=== PATIENT | male | born 1945 | race Caucasian/White ===

== ENCOUNTER 2016-06-29 11:24 | Inpatient (IN) | payer MEDICARE, OTHER ==
[~2016-06-29] VITALS: Ht 165.1 cm; Wt 53.1 kg
[2016-06-29] VITALS (12 sets, daily range): BP systolic 83–118; BP diastolic 61–78
[2016-06-29] MEDS ORDERED: ASPIRIN 325 MG TABLET ONE (12:01)
[2016-06-29] MEDS ORDERED: HEPARIN for IV BOLUS 10,000 UNIT/10 ML VIAL. ONE ×2 (12:01→12:29)
--- NOTE | 2016-06-29 12:14 | PHYS DOC ---
Past Medical History Past Medical History: No Pertinent History Past Surgical History: Other Additional Past Surgical Histo: RUPTURED HERNIA Alcohol Use: None Drug Use: None Adult General Chief Complaint Chief Complaint: CHEST PAIN HPI HPI Patient is a 70 year old male brought to the ED by his niece and a neighbor with the complaint of epigastric pain which started at 8 PM last night. Patient says he laid awake all night last night with epigastric pain and a cold sweat. It did wax and wane somewhat but did not go away. It persisted this morning. Patient's niece tells me that he usually comes over to her house every day and when he didn't show up she went to check on him and made him come to the ED. States he has had this pain with a cold sweat twice in the last week or 2 but before then has never had it. Denies history of a heart attack. He quit smoking 8 years ago. He does not see a doctor regularly and has no known medical problems. He is not being treated for any medical conditions. He does believe he had a heart catheter in the 1970s. He had a left inguinal hernia repair in 2004. Review of Systems Review of Systems Constitutional: He had cold sweats all night Eyes: Denies change in visual acuity, redness, or eye pain [] HENT: Denies nasal congestion or sore throat [] Respiratory: Denies cough or shortness of breath [] Cardiovascular: As in history of present illness GI: As in history of present illness. His pain is epigastric in location, he does not have chest pain : Denies dysuria or hematuria [] Musculoskeletal: Denies back pain or joint pain [] Integument: Denies rash or skin lesions [] Neurologic: Denies headache, focal weakness or sensory changes [] Current Medications Current Medications Current Medications Medications (Trade) Dose Ordered Sig/Jamie Start Time Stop Time Status Last Admin Dose Admin Aspirin (Alexys Aspirin) 325 mg STK-MED ONCE 06/29/16 12:01 06/29/16 12:02 DC Heparin Sodium (Porcine) 10,000 unit STK-MED ONCE 06/29/16 12:01 06/29/16 12:02 DC Allergies Allergies Allergies Coded Allergies Type Severity Reaction Last Updated Verified No Known Drug Allergies 06/29/16 No Physical Exam Physical Exam Constitutional: Well developed, well nourished, no acute distress, non-toxic appearance. No dyspnea or diaphoresis on arrival. Alert, mentating normally. HENT: Normocephalic, atraumatic, bilateral external ears normal, oropharynx moist, nose normal. [] Eyes: conjunctiva normal, no discharge. [] Neck: Normal range of motion, no stridor. [] Cardiovascular:Heart rate regular rhythm, no murmur [] Lungs & Thorax: Bilateral breath sounds clear to auscultation [] Abdomen: Bowel sounds normal, soft, no tenderness, no masses, no pulsatile masses. [] Skin: Warm, dry, no erythema, no rash. [] Extremities: No tenderness, no cyanosis, no clubbing, ROM intact, no edema. [] Neurologic: Alert and oriented X 3, normal motor function, normal sensory function, no focal deficits noted. [] Current Patient Data Vital Signs Vital Signs Date Time Temp Pulse Resp B/P Pulse Ox O2 Delivery O2 Flow Rate FiO2 06/29/16 11:59 106 18 167/93 98 Room Air 06/29/16 11:37 98.1 98.1 Lab Values Laboratory Tests Test 06/29/16 12:05 06/29/16 12:08 06/29/16 12:10 White Blood Count 11.2x10^3/uL (4.0-11.0) H Red Blood Count 4.59x10^6/uL (4.30-5.70) Hemoglobin 13.7g/dL (13.0-17.5) Hematocrit 42.1% (39.0-53.0) Mean Corpuscular Volume 92fL (79-100) Mean Corpuscular Hemoglobin 30pg (25-35) Mean Corpuscular Hemoglobin Concent 33g/dL (31-37) Red Cell Distribution Width 13.6% (11.5-14.5) Platelet Count 238x10^3/uL (140-400) Neutrophils (%) (Auto) 88% (31-73) H Lymphocytes (%) (Auto) 6% (24-48) L Monocytes (%) (Auto) 7% (0-9) Eosinophils (%) (Auto) 0% (0-3) Basophils (%) (Auto) 0% (0-3) Neutrophils # (Auto) 9.8x10^3uL (1.8-7.7) H Lymphocytes # (Auto) 0.6x10^3/uL (1.0-4.8) L Monocytes # (Auto) 0.7x10^3/uL (0.0-1.1) Eosinophils # (Auto) 0.0x10^3/uL (0.0-0.7) Basophils # (Auto) 0.0x10^3/uL (0.0-0.2) Platelet Estimate Pending Prothrombin Time 11.2SEC (11.7-14.0) L Prothrombin Time INR 0.9 (0.8-1.1) Sodium Level 144mmol/L (136-145) Potassium Level 4.7mmol/L (3.5-5.1) Chloride Level 104mmol/L (98-107) Carbon Dioxide Level 24mmol/L (21-32) Anion Gap 16 (6-14) H 18mmol/L (6-14) H Blood Urea Nitrogen 15mg/dL (8-26) Creatinine 1.0mg/dL (0.7-1.3) Estimated GFR (Cockcroft-Gault) 74.3 Glucose Level 191mg/dL (70-99) H 190mg/dL (70-99) H Calcium Level 10.3mg/dL (8.5-10.1) H Magnesium Level 2.1mg/dL (1.8-2.4) Total Bilirubin 0.5mg/dL (0.2-1.0) Direct Bilirubin 0.1mg/dL (0.0-0.2) Aspartate Amino Transferase (AST) 473U/L (15-37) H Alanine Aminotransferase (ALT) 79U/L (16-63) H Alkaline Phosphatase 84U/L (46-116) Total Protein 8.3g/dL (6.4-8.2) H Albumin 4.4g/dL (3.4-5.0) POC Troponin I 41.31ng/ml (<0.08) POC Hemoglobin 14.3g/dL (14-18) POC Hematocrit 42% (37-52) POC Sodium 140mmol/L (135-145) POC Potassium 4.2mmol/L (3.5-5.0) POC Chloride 104mmol/L (98-110) POC Total CO2 23mmol/L (23-32) POC Blood Urea Nitrogen 13mg/dL (8-26) POC Creatinine 0.8mg/dL (0.5-1.4) POC Ionized Calcium (Cheikh) 1.11mmol/L (1.13-1.32) L Laboratory Tests 06/29/16 12:05 Laboratory Tests 06/29/16 12:05 06/29/16 12:10 EKG EKG 12-lead EKG read by me. Sinus rhythm. Heart rate 96. ST elevation is present in 2, 3, and aVF, with reciprocal depression in 1, aVL, and V2. The EKG is consistent with an acute STEMI. 1147[] Radiology/Procedures Radiology/Procedures One view portable chest x-ray read by me. Heart size normal. Lung padilla are clear. No acute cardiopulmonary abnormality. [] Course & Med Decision Making Course & Med Decision Making Pertinent Labs and Imaging studies reviewed. (See chart for details) 70-year-old male presented to the ED by POV complaining of epigastric pain since 8:00 last night, persistent now for about 16 hours. He was placed in a room and 12-lead EKG showed STEMI. He was moved to a cardiac room and code STEMI was initiated. I spoke with Dr. Campbell who is on-call for STEMI team. Patient was given aspirin and IV heparin. Patient and family were counseled on the diagnosis of STEMI and the treatment plan for cardiology and likely catheter lab. Questions were answered. Patient remained stable in the emergency department. Dr. Campbell, cardiology, came to the ED to see the patient and examine him and discussed with the patient and family the plan for catheter lab. I spoke with Dr. Eugene, hospital medicine, who will admit the patient. I wrote bridge orders. The patient went from the ED to the County Historian. Critical care time 40 minutes including evaluation of acute STEMI, reading EKG, bedside consultation, consultation with complaint investigator and admitting hospitalist, writing orders, documentation, bridge orders. [] Dragon Disclaimer Dragon Disclaimer This electronic medical record was generated, in whole or in part, using a voice recognition dictation system. Departure Departure Impression: Primary Impression: STEMI (ST elevation myocardial infarction) Disposition: 09 ADMITTED INPATIENT Admitting Physician: Other Condition: STABLE Referrals: UNKNOWN PCP NAME (PCP) BHAKTI BEAR MD Jun 29, 2016 12:14
[2016-06-29] MEDS ORDERED: ONDANSETRON PF 4 MG/2 ML VIAL. ONE (12:17)
[2016-06-29] MEDS ORDERED: MORPHINE SULFATE 2 MG/ML DISP.SYRIN. ONE (12:18)
[2016-06-29] MEDS ORDERED: IODIXANOL 320 MG/ML 100 ML VIAL. ONE ×2 (12:24)
[2016-06-29] MEDS ORDERED: LIDOCAINE 2% 20 ML VIAL. ONE (12:24)
[2016-06-29] MEDS ORDERED: FENTANYL PF 100 MCG/2 ML VIAL. ONE (12:29)
[2016-06-29] MEDS ORDERED: VERAPAMIL 5 MG/2 ML VIAL. ONE (12:29)
[2016-06-29] MEDS ORDERED: NITROGLYCERIN 200 MCG/2 ML SYRINGE FOR CATH/VASC LAB. ONE (12:29)
[2016-06-29] MEDS ORDERED: MORPHINE SULFATE 2 MG/ML DISP.SYRIN. IV/SQ PRN (12:30)
[2016-06-29] MEDS ORDERED: HEPARIN for IV BOLUS 10,000 UNIT/10 ML VIAL. IV ONE ×2 (12:30→13:19)
[2016-06-29] MEDS ORDERED: ASPIRIN 81 MG TAB.CHEW PO ONE (12:30)
[2016-06-29] MEDS ORDERED: MIDAZOLAM HCL 2 MG/2 ML VIAL. ONE (12:30)
[2016-06-29] MEDS ORDERED: ONDANSETRON PF 4 MG/2 ML VIAL. IV ONE (12:30)
--- NOTE | 2016-06-29 12:38 | RAD ---
Indication: Myocardial infarction. Technique: Upright portable chest radiograph was obtained. Comparison is from November 22, 2004. Findings: The lungs are clear. The heart is not enlarged. There is no heart failure. Bony structures are intact. Leads overlie the patient. Impression: No acute thoracic findings.
[2016-06-29 12:41] LABS: BASO % 0 % (0-3); EOS % 0 % (0-3); HEMATOCRIT 42.1 % (39.0-53.0); HEMOGLOBIN 13.7 g/dL (13.0-17.5); LYMPH # 0.6 x10^3/uL (1.0-4.8); LYMPH % 6 % (24-48); MEAN CORPUSCULAR HEMOGLOBIN 30 pg (25-35); MEAN CORPUSCULAR HGB CONC 33 g/dL (31-37); MEAN CORPUSCULAR VOLUME 92 fL (79-100); MONO % 7 % (0-9); NEUT % 88 % (31-73); PLATELET COUNT 238 x10^3/uL (140-400); RED BLOOD COUNT 4.59 x10^6/uL (4.30-5.70); RED CELL DISTRIBUTION WIDTH 13.6 % (11.5-14.5); WHITE BLOOD COUNT 11.2 x10^3/uL (4.0-11.0)
--- NOTE | 2016-06-29 12:41 | EKG ---
[facility] [address] [place] [address] Test Date: 2016-06-29 Test Time: 11:47:52 Pat Name: LLOYD CORBETT Department: Room: 104 1 Gender: Male Teaching Pastor: : 1945 Requested By: BHAKTI BEAR Order Number: [id number] Reading MD: Jaden Luke Measurements Intervals [place] Rate: 96 P: 59 [place]: 170 QRS: -6 QRSD: 84 T: 100 QT: 320 QTc: 410 Interpretive Statements SINUS RHYTHM LEFT ATRIAL ABNORMALITY LEFTWARD AXIS INCOMPLETE RIGHT BUNDLE BRANCH BLOCK QRS(T) CONTOUR ABNORMALITY CONSIDER ACUTE INFERIOR MYOCARDIAL INFARCTION Electronically Signed On 07-08-2016 16:19:55 CDT by Jaden Luke
[2016-06-29 12:45] LABS: CALCIUM 10.3 mg/dL (8.5-10.1); GFR 74.3; POTASSIUM 4.7 mmol/L (3.5-5.1)
[2016-06-29] MEDS ORDERED: FENTANYL PF 100 MCG/2 ML VIAL. IV ONE (12:45)
[2016-06-29] MEDS ORDERED: MIDAZOLAM HCL 2 MG/2 ML VIAL. IV ONE (12:45)
[2016-06-29] MEDS ORDERED: TIROFIBAN 12.5MG -0.9% NS 250 ML IV ONE (12:45)
[2016-06-29 12:47] LABS: POTASSIUM ISTAT 4.2 mmol/L (3.5-5.0)
[2016-06-29] MEDS ORDERED: TIROFIBAN IV ONE (12:48)
[2016-06-29] MEDS ORDERED: NS IV ONE (12:48)
[2016-06-29 12:51] LABS: ALBUMIN 4.4 g/dL (3.4-5.0); DIRECT BILIRUBIN 0.1 mg/dL (0.0-0.2); MAGNESIUM 2.1 mg/dL (1.8-2.4); TOTAL BILIRUBIN 0.5 mg/dL (0.2-1.0); TOTAL PROTEIN 8.3 g/dL (6.4-8.2)
--- NOTE | 2016-06-29 12:51 | CONS ---
DATE OF CONSULTATION: 06/29/2016 HISTORY OF PRESENT ILLNESS: The patient is a pleasant 70-year-old gentleman, no past medical history, coming into the ER with epigastric pain times 24 hours. He reports that he had some similar discomfort approximately 2 weeks ago. At baseline, he does not have any significant dyspnea. Upon evaluation in the ER, he was noted to have inferior ST elevation myocardial infarction appropriately STEMI team was activated. He was given aspirin 325 and 4000 units of heparin and taken emergently to the oven laborer. PAST MEDICAL HISTORY: No significant past medical history. PAST SURGICAL HISTORY: Hernia repair. ALLERGIES: No known drug allergies. SOCIAL HISTORY: Lives by himself, appears to be estranged from family. Remote tobacco history. No alcohol or illicit drug use. MEDICATIONS: No current cardiovascular medications. PHYSICAL EXAMINATION: VITAL SIGNS: Afebrile, heart rate 100, pulse ox 99% on room air. Blood pressure 127/82. GENERAL: He is alert and oriented, no acute distress. HEAD AND NECK: Unremarkable. CARDIAC: Regular rate and rhythm without any murmurs, rubs or gallops. LUNGS: Clear. ABDOMEN: Soft. EXTREMITIES: Radial pulses are 2+. NEUROLOGIC: No focal deficits. PSYCHIATRIC: Mood normal. DIAGNOSTIC STUDIES: Cr 1.0 Trop 92. EKG with inferior STEMI, likely late presentation given q-waves. Cardiac cath demonstrated: No significant disease in the LAD, LM. Congenitally absent Lcx. Proximal RCA occlusion, s/p stenting with implantation of Xience 3.0/23 PAUL. LVEF 45% with inferior wall HK. IMPRESSION: 1. Inferior STEMI. 2. Transient bradycardia due to inferior STEMI. RECOMMENDATIONS: 1. ASA 81mg daily 2. Ticagrelor 90mg bid 3. Atorvastatin 40mg qhs. 4. Continue Tirofiban infusion x 18 hours. 5. Cardiac rehab referral. 6. Admit to ICU and monitor. DO EDWARDS MD DR: ALEXIS/jet JOB#: [id number] / [id number] WILFRED
[2016-06-29 12:56] LABS: INR 0.9 (0.8-1.1); PROTHROMBIN TIME PATIENT 11.2 SEC (11.7-14.0)
[2016-06-29] MEDS ORDERED: TIROFIBAN 12.5MG -0.9% NS 250 ML IV PRN ×2 (13:00→14:00)
[2016-06-29] MEDS ORDERED: VERAPAMIL 5 MG/2 ML VIAL. IART ONE (13:00)
[2016-06-29] MEDS ORDERED: NITROGLYCERIN 200 MCG/2 ML SYRINGE FOR CATH/VASC LAB. IART ONE (13:00)
[2016-06-29] MEDS ORDERED: LIDOCAINE 2% 20 ML VIAL. IJ ONE (13:00)
[2016-06-29] MEDS ORDERED: HEPARIN for IV BOLUS 10,000 UNIT/10 ML VIAL. IART ONE (13:00)
[2016-06-29] MEDS ORDERED: IODIXANOL 320 MG/ML 100 ML VIAL. IART ONE (13:00)
[2016-06-29] MEDS ORDERED: PHENYLEPHRINE in 0.9% NACL PF 1 MG/10 ML DISP.SYRIN. IV ONE ×2 (13:12→13:15)
[2016-06-29] MEDS ORDERED: CONTRAST GIVEN MC PRN (13:15)
[2016-06-29] MEDS ORDERED: DOPAMINE 400MG/250ML PREMIX 250 ML IV ONE (13:16)
[2016-06-29] MEDS ORDERED: ATROPINE 0.5 MG/5 ML DISP.SYRIN. IV ONE (13:17)
[2016-06-29] MEDS ORDERED: CANGRELOR TETRASODIUM 50 MG VIAL. IV ONE (13:36)
[2016-06-29 13:40] LABS: CKMB INDEX 12.4 % (0-4); CKMB MASS 557.5 ng/mL (0.0-3.6)
[2016-06-29] MEDS ORDERED: CANGRELOR TETRASODIUM 50 MG in IV NORMAL SALINE 250ML 250 ML IV PRN (13:45)
[2016-06-29] MEDS ORDERED: OXYCODONE/APAP 5/325 TABLET. PO PRN (14:00)
[2016-06-29] MEDS ORDERED: ATROPINE 0.5 MG/5 ML DISP.SYRIN. IV PRN (14:00)
[2016-06-29] MEDS ORDERED: NITROGLYCERIN SUBLINGUAL 0.4 MG BOTTLE OF 25. SL PRN (14:00)
[2016-06-29] MEDS ORDERED: LIDOCAINE 2% 100 MG/5 ML DISP.SYRIN. IV PRN (14:00)
[2016-06-29] MEDS ORDERED: ONDANSETRON PF 4 MG/2 ML VIAL. IV PRN (14:00)
[2016-06-29] MEDS ORDERED: CYCLOBENZAPRINE 10 MG TABLET. PO PRN (14:00)
[2016-06-29] MEDS ORDERED: 0.9 % SODIUM CHLORIDE 10 ML DISP.SYRIN. IV PRN (14:00)
[2016-06-29] MEDS ORDERED: ACETAMINOPHEN 325 MG TABLET. PO PRN (14:00)
[2016-06-29] MEDS ORDERED: AMIODARONE 150 MG in IV DEXTROSE 5% 100 ML IV PRN (14:00)
[2016-06-29 14:22] LABS: PLT ESTIMATE ADEQUATE (ADEQUATE); TOXIC GRANULATION MOD
--- NOTE | 2016-06-29 14:45 | ACF ---
Admission Forms Criteria MYOCARDIAL INFARCTION Clinical Indications for Admission to Inpatient Care (Place 'X' for any and all applicable criteria): Admission is indicated for ANY ONE of the following (1)(2)(3)(4): [X]I. Acute VT [ ]II. Contraindications and/or Inappropriate clinical situations for Observational Care in patients with Myocardial Infarction, when ANY ONE of the following is required: [ ]a) Patient with High risk of cardiac embolism (e.g, patients with previous cardiac embolism, LVEF < 40%, age >75 and patients with prosthetic valve) 18 [ ]b) Patient with Moderate risk including DM patient, CAD and patient aged 65-75 18 [ ]c) Patient with any change in cardiac biomarker especially troponin should be managed as high risk in an inpatient setting 19 [ ]d) Physician judgement irrespective of ECG and other diagnostic findings 20 [ ]III.General contraindications and/or Inappropriate clinical situations for Observational Care in patients with Myocardial Infarction, when ANY ONE of the following is required: [ ]a) Prediction of prolongation of LOS based on ANY ONE of the following may be considered as a contraindication for observational care 2, 3, 4, 5, 6, 7, 8, 9, 10, 11 [ ]i) Age > 65 yrs. [ ]ii) Patient arriving by ambulance [ ]iii) Patient with high acuity [ ]iv) Patient requiring vital sign monitoring [ ]v) Patient on IV medication [ ]b) Systolic blood pressures 180mmHg 3,12 [ ]c) Patient with altered mental status including delirium and other alteration of consciousness, (3) [ ]d) Patient whose discharge disposition will be to a residential home or rehabilitation home should not be managed in Emergency Department Observation Unit. CMS rule requires 3 days hospital stay before such placement. 3,13 [ ]e) Patient with failure to thrive due to broad array of etiologies 3 ,16,17 [ ]f) Inability to ambulate 3,14 Extended stay beyond goal length of stay may be needed for (1)(18)(20)(24)(25): [ ]a) Hemodynamic instability, persisting symptoms after intensive medical management, or recurring severe, prolonged symptoms [ ]b) Intravascular procedural complications such as acute vessel closure, stent thrombosis, stent malposition, or vessel dissection (26)(27)(28) [ ]c) Extravascular procedural complications such as retroperitoneal hematoma , pericardial effusion, or cardiac tamponade [ ]d) Entry site complications causing bleeding, hematoma or distal ischemia and requiring ongoing monitoring, surgical repair or surgical thrombectomy(29) [ ]e) Dangerous arrhythmia [ ]f) Complicated percutaneous coronary intervention (e.g., unsuccessful percutaneous coronary intervention or percutaneous coronary intervention of non- [place] vessel) [ ]g) Urgent or emergent surgery for complications of VT (e.g., ventricular rupture, valvular insufficiency) [ ]h) Surgical revascularization via coronary artery bypass graft [ ]i) Heart failure (e.g., pulmonary edema) [ ]j) Unstable pulmonary comorbidities, including COPD or pneumonia (31) [ ]k) Acute renal failure The original [employer] content created by [employer] has been revised. The portions of the content which have been revised are identified through the use of italic text or in bold, and [facility] [employer] has neither reviewed nor approved the modified material. All other unmodified content is copyright [facility] [employer] Please see references footnoted in the original [employer] [facility] [employer] [employer] edition 2016 Admission Criteria Met?: Yes SUSAN FLORES Jun 29, 2016 14:45
[2016-06-29] MEDS: MORPHINE SULFATE 4 MG/ML DISP.SYRIN. IV PRN ×3 (14:56→22:06)
--- NOTE | 2016-06-29 15:51 | EKG ---
[facility] [address] [place] [address] Test Date: 2016-06-29 Test Time: 15:48:46 Pat Name: LLOYD CORBETT Department: Room: 104 1 Gender: M Clinical Research Administrator: : 1945 Requested By: DO EDWARDS Order Number: [id number] Reading MD: Jaden Luke Measurements Intervals [place] Rate: 74 P: 71 AR: 168 QRS: -34 QRSD: 86 T: -34 QT: 382 QTc: 424 Interpretive Statements SINUS RHYTHM ABNORMAL LEFT AXIS DEVIATION INCOMPLETE RIGHT BUNDLE BRANCH BLOCK QRS(T) CONTOUR ABNORMALITY CONSISTENT WITH INFERIOR INFARCT POSSIBLY RECENT ABNORMAL ECG RI6.01 No previous ECG available for comparison Electronically Signed On 07-08-2016 16:21:06 CDT by Jaden Luke
[2016-06-29] MEDS ORDERED: TICAGRELOR 90 MG TABLET. PO STA (16:30)
--- NOTE | 2016-06-29 17:03 | CARD ---
APPROVED REPORT Procedure(s) performed: PTCA with Stenting RCA PTCA of the RPDA Left Heart Catheterization Left ventriculography HISTORY : The patient is a 70 year-old male with a history of . INDICATION The indication(s) include : STEMI (>6 hrs to = 12 hrs). PROCEDURE NARRATIVE After explaining the risks and benefits of the procedure and alternatives, informed verbal consent wa s obtained. The patient was brought emergently to the cardiac catheterization lab. A timeout was per formed confirming the patient's name, date of , procedure, and site of procedure. All necessary personnel were wearing the appropriate protective equipment and radiation monitor devices. (See nu rsing notes for medications administered). The right wrist was sterilely prepped and draped in the u sual fashion. The right wrist was infiltrated with 1 mL of 2% lidocaine for subcutaneous anesthesia. A 6 Hebrew Terumo glide sheath was inserted into the right radial artery without difficulty. Right and left coronary angiography was performed using a 6Fr Ikari 1.5 R guide catheter. HEMODYNAMICS: LVEDP 28 mm Hg No gradient on LV to aortic pullback. LEFT VENTRICULOGRAM: EF 40% Anterobasal: Normal. Anterolateral: Normal Apical: Normal Diaphragmatic: Akinetic Posterobasal: Akinetic CORONARY ANGIOGRAPHY: LM is a large caliber vessel with normal angiographic appearance. LAD is a large caliber vessel with normal angiographic appearance. D1 is a moderate caliber vessel with normal angiographic apeparance. LCx is congenitally absent. The lateral wall is supplied by a hyperdominant RCA. RCA is a large caliber dominant vessel with a proximal 100% occlusion. RPDA is a small caliber vessel with distal thrombus noted in the small vessel. RPL1 is a moderate caliber vessel with distal thrombus noted. RPL2 is a small caliber vessel with distal thrombus noted. INTERVENTIONAL TECHNIQUE: Heparin weight based bolus dosing was used to achieve and maintain an ACT > 200. In addition, a Tirof machelle infusion was started after bolus. Through the 6Fr Ikari 1.5 guide catheter, a 0.014'' Terumo run through wire was able to cross the proximal RCA lesion. Balloon angioplasty was performed with a Iban k 2.5/12 balloon. Post-angioplasty, angiography showed distal small vessel no reflow and thrombus bur den in the proximal RCA. Next, a Prowater wire was advanced to the distal RPDA to help with small wir e reperfusion and dotter the vessel. Next, repeat angioplasty was performed of the proximal RCA with a 3.0/12 balloon and the lesion wa stented after the PDA wire was removed with a Xience 3.0/23 PAUL at 14 marium. Several rounds of NTG and verapamil were given. The patient had transient bradycardia and ju nctional rhythm during the case as expected given his RCA occlusion. IVF were given. Repeat angiograp hy demonstrated mid RPDA occlusion a less than 2.0 mm caliber sized vessel. Therefore, a low pressure balloon inflation with a Trek 2.0/8 mm balloon was performed after a Prowater wire was placed back i n the RPDA. Despite, several vasodilator agents, the patient had persistent distal microvascular no-r eflow. At this time, given STEVEN 3 flow in the major branches, further intervention was deferred. Lef t ventricular end diastolic pressure was obtained with a pigtail catheter and pullback was performed after left ventriculography in a GARRISON/SERBIAN projection. All catheter exchanges and advancements were pe rformed over a guidewire. At case completion the right radial sheath was removed and a Terumo radial band was applied with 15 ml of air. The patient tolerated the procedure well and there were no imme diate complications. The patient was started in Cangrelor therapy and transferred to ICU for close mo nitoring. Conclusion 1. Inferior STEMI 2. Successful implantation of a Xience 3.0/23 PAUL in the proximal RCA. 3. Congenitally absent LCx. Recommendations ASA 81mg daily Ticagrelor 90mg bid Atorvastatin 40mg daily Lipids in a.m. Cardiac rehab. Continue Tirofiban infusion x 18 hours. Echo in a.m.
[2016-06-29] MEDS ORDERED: DEXTROSE 50% 25 GM / 50ML DISP.SYRIN. IV PRN (18:15)
--- NOTE | 2016-06-29 20:04 | HP ---
ADMIT DATE: 06/29/2016 CHIEF COMPLAINT: Chest pain. HISTORY OF PRESENT ILLNESS: The patient is a 70-year-old gentleman, without any medical problems (or medical care), who was brought in by his niece with complaints of epigastric pain starting at 8:00 p.m. last night. He relates that he actually had been up all night with his having cold sweats. Pain however never completely went away, although waxed and waned during the night. On further questioning, he relates that he had similar pain in the past for quite a while, although he is unable to specify the time frame. In the Emergency Room, he was found with an NSTEMI and was immediately taken to the Inside Sales Director for a catheterization. Cath showed inferior NSTEMI with successful implantation of a stent in the proximal RCA. EF at that time was 40%. He was brought to the Intensive Care Unit for further recovery. PAST MEDICAL HISTORY: Possible cardiac cath in the past. Hernia repair in 2004. FAMILY HISTORY: Positive for heart disease in both parents. SOCIAL HISTORY: He lives by himself. Quit smoking 8 years ago after accumulating [id number] history. Quit drinking 17 years ago after apparently excessive alcohol abuse. ALLERGIES: No known drug allergies. HOME MEDICATIONS: None. REVIEW OF SYSTEMS: Still has some pain in his left chest just lateral to the sternum. Much much improved over pain from this morning. Denies any shortness of breath. Rest of organ system review is negative. PHYSICAL EXAMINATION: VITAL SIGNS: Currently show a blood pressure of 112/76, heart rate of 81, respiratory rate at 21. He is afebrile. GENERAL: This is a 70-year-old gentleman, malnourished, alert and oriented, in no acute distress. HEENT: Shows no scleral icterus. NECK: Supple. LUNGS: Clear to auscultation. HEART: Regular rate and rhythm. ABDOMEN: Has positive bowel sounds, soft, nontender. EXTREMITIES: Show no edema. SKIN: Warm, soft, and dry without any rash. LABORATORY DATA: CBC with a WBC of 11.2, hemoglobin 13.7, platelets of 238, neutrophils at 88. Chemistries with a BUN and creatinine of 15 and 1.0. Electrolytes within normal limits. Glucose at 191. AST and ALT of 473 and 79. CK at 4505. Initial troponin at 92.5. ProBNP 1466. RADIOGRAPHIC FINDINGS: Chest x-ray with no acute thoracic findings. ASSESSMENT AND PLAN: The patient is a 70-year-old gentleman with [id number] myocardial infarction, now status post successful cath with stent placement. He is recuperating in the ICU. By his glucose measurements, he is more than likely diabetic as well. We will obtain hemoglobin A1c, start insulin sliding scale for now to get a an idea of insulin response. He probably will have to be on insulin for the next month and then can be switched to p.o. meds. We will risk stratify him with lipid profile as well. In the meantime, heparin protocol as per cath. Aspirin will be continued in the morning. JAK GOMEZ MD DR: ADE/nts JOB#: [id number] / [id number] WILFRED
[2016-06-29] MEDS: METOPROLOL TART IMMED RELEASE 25 MG TABLET PO SCH (20:50)
[2016-06-29] MEDS: ATORVASTATIN CALCIUM 40 MG TABLET. PO SCH (20:50)
[2016-06-29 22:40] LABS: CKMB INDEX 10.3 % (0-4); CKMB MASS 686.9 ng/mL (0.0-3.6)
[2016-06-30] VITALS (28 sets, daily range): BP systolic 65–130; BP diastolic 49–80
[2016-06-30] MEDS: MORPHINE SULFATE 4 MG/ML DISP.SYRIN. IV PRN ×2 (02:07→10:28)
[2016-06-30 07:25] LABS: ALBUMIN 3.5 g/dL (3.4-5.0); CREATININE 2.3 mg/dL (0.7-1.3); DIRECT BILIRUBIN 0.2 mg/dL (0.0-0.2); GFR 28.4; POTASSIUM 4.8 mmol/L (3.5-5.1); TOTAL BILIRUBIN 0.6 mg/dL (0.2-1.0); TOTAL PROTEIN 7.8 g/dL (6.4-8.2)
[2016-06-30 07:30] LABS: CHOLESTEROL/HDL RATIO 1.6
[2016-06-30 07:59] LABS: CKMB INDEX 6.7 % (0-4); CKMB MASS 328.7 ng/mL (0.0-3.6)
[2016-06-30] MEDS: INSULIN ASPART 300 UNITS/3 ML INSULN.PEN SQ SCH ×3 (08:00→17:00)
[2016-06-30] MEDS ORDERED: IV NORMAL SALINE 1000ML BAG 1,000 ML IV SCH (08:15)
--- NOTE | 2016-06-30 08:15 | PDOC ---
PROGRESS NOTES Chief Complaint Chief Complaint IMPRESSION: 1. Inferior STEMI. Proximal RCA occlusion, s/p stenting with implantation of Xience 3.0/23 PAUL. LVEF 45% with inferior wall HK. 2. Transient bradycardia due to inferior STEMI. 3. ANDIE, possible Contrast induced nephropathy\ 4. Urinary retention History of Present Illness History of Present Illness SOme epigastric pains VS stable Needed straight cath last night Again, bladder feels full now NO UO yet LAst bladder scan 400cc 2 hrs ago NOt the best historian, re sxs of BPH Crea jumped to 2.7 this AM PLAn: Bladder scan now, likely will need to insert valdez Check PSA Start IVF 100cc/hr CHeck UA - (for ATN, muddy brown granular casts etc) Recheck BMP hansa COnsult urology re urinary retention Cardiac recs include: RECOMMENDATIONS: 1. ASA 81mg daily 2. Ticagrelor 90mg bid 3. Atorvastatin 40mg qhs. 4. Continue Tirofiban infusion x 18 hours. 5. Cardiac rehab referral. 6. Admit to ICU and monitor. Vitals Vitals Vital Signs Date Time Temp Pulse Resp B/P Pulse Ox O2 Delivery O2 Flow Rate FiO2 06/30/16 07:00 75 20 111/68 95 Nasal Cannula 2.0 06/30/16 04:00 98.1 98.1 Physical Exam General: Alert, Oriented X3, Cooperative, No acute distress Heart: Regular rate, Normal S1, Normal S2, No murmurs Lungs: Clear Abdomen: Normal bowel sounds Extremities: No clubbing, No cyanosis, No edema Skin: No rashes, No breakdown, No significant lesion Labs LABS Laboratory Tests Test 06/29/16 12:05 06/29/16 12:08 06/29/16 12:10 06/29/16 22:00 White Blood Count 11.2x10^3/uL (4.0-11.0) Red Blood Count 4.59x10^6/uL (4.30-5.70) Hemoglobin 13.7g/dL (13.0-17.5) Hematocrit 42.1% (39.0-53.0) Mean Corpuscular Volume 92fL (79-100) Mean Corpuscular Hemoglobin 30pg (25-35) Mean Corpuscular Hemoglobin Concent 33g/dL (31-37) Red Cell Distribution Width 13.6% (11.5-14.5) Platelet Count 238x10^3/uL (140-400) Neutrophils (%) (Auto) 88% (31-73) Lymphocytes (%) (Auto) 6% (24-48) Monocytes (%) (Auto) 7% (0-9) Eosinophils (%) (Auto) 0% (0-3) Basophils (%) (Auto) 0% (0-3) Neutrophils # (Auto) 9.8x10^3uL (1.8-7.7) Lymphocytes # (Auto) 0.6x10^3/uL (1.0-4.8) Monocytes # (Auto) 0.7x10^3/uL (0.0-1.1) Eosinophils # (Auto) 0.0x10^3/uL (0.0-0.7) Basophils # (Auto) 0.0x10^3/uL (0.0-0.2) Segmented Neutrophils % 78% (35-66) Band Neutrophils % 14% (0-9) Lymphocytes % 4% (24-48) Monocytes % 4% (0-10) Toxic Granulation Mod Platelet Estimate Adequate (ADEQUATE) Prothrombin Time 11.2SEC (11.7-14.0) Prothromb Time International Ratio 0.9 (0.8-1.1) Sodium Level 144mmol/L (136-145) Potassium Level 4.7mmol/L (3.5-5.1) Chloride Level 104mmol/L (98-107) Carbon Dioxide Level 24mmol/L (21-32) Anion Gap 16 (6-14) 18mmol/L (6-14) Blood Urea Nitrogen 15mg/dL (8-26) Creatinine 1.0mg/dL (0.7-1.3) Estimated GFR (Cockcroft-Gault) 74.3 Glucose Level 191mg/dL (70-99) 190mg/dL (70-99) Calcium Level 10.3mg/dL (8.5-10.1) Magnesium Level 2.1mg/dL (1.8-2.4) Total Bilirubin 0.5mg/dL (0.2-1.0) Direct Bilirubin 0.1mg/dL (0.0-0.2) Aspartate Amino Transf (AST/SGOT) 473U/L (15-37) Alanine Aminotransferase (ALT/SGPT) 79U/L (16-63) Alkaline Phosphatase 84U/L (46-116) Creatine Kinase 4505U/L (39-308) 6680U/L (39-308) Creatine Kinase MB (Mass) 557.5ng/mL (0.0-3.6) 686.9ng/mL (0.0-3.6) Creatine Kinase MB Relative Index 12.4% (0-4) 10.3% (0-4) Troponin I Quantitative 92.517ng/mL (0.000-0.055) YM-Odq-Z-Type Natriuretic Peptide 1466pg/mL (0-124) Total Protein 8.3g/dL (6.4-8.2) Albumin 4.4g/dL (3.4-5.0) Bedside Troponin I 41.31ng/ml (<0.08) Bedside Hemoglobin 14.3g/dL (14-18) Bedside Hematocrit 42% (37-52) Bedside Sodium 140mmol/L (135-145) Bedside Potassium 4.2mmol/L (3.5-5.0) Bedside Chloride 104mmol/L (98-110) Bedside Total CO2 23mmol/L (23-32) Bedside Blood Urea Nitrogen 13mg/dL (8-26) Bedside Creatinine 0.8mg/dL (0.5-1.4) Bedside Ionized Calcium (Cheikh) 1.11mmol/L (1.13-1.32) Test 06/30/16 06:50 Sodium Level 136mmol/L (136-145) Potassium Level 4.8mmol/L (3.5-5.1) Chloride Level 99mmol/L (98-107) Carbon Dioxide Level 22mmol/L (21-32) Anion Gap 15 (6-14) Blood Urea Nitrogen 32mg/dL (8-26) Creatinine 2.3mg/dL (0.7-1.3) Estimated GFR (Cockcroft-Gault) 28.4 Glucose Level 156mg/dL (70-99) Calcium Level 9.0mg/dL (8.5-10.1) Total Bilirubin 0.6mg/dL (0.2-1.0) Direct Bilirubin 0.2mg/dL (0.0-0.2) Aspartate Amino Transf (AST/SGOT) 650U/L (15-37) Alanine Aminotransferase (ALT/SGPT) 124U/L (16-63) Alkaline Phosphatase 63U/L (46-116) Creatine Kinase 4896U/L (39-308) Creatine Kinase MB (Mass) 328.7ng/mL (0.0-3.6) Creatine Kinase MB Relative Index 6.7% (0-4) Total Protein 7.8g/dL (6.4-8.2) Albumin 3.5g/dL (3.4-5.0) Triglycerides Level 66mg/dL (0-150) Cholesterol Level 177mg/dL (0-200) LDL Cholesterol, Calculated 56mg/dL (0-100) VLDL Cholesterol, Calculated 13mg/dL (0-40) HDL Cholesterol 108mg/dL (40-60) Cholesterol/HDL Ratio 1.6 Review of Systems Review of Systems full blaDDER, SOME EPIGATSRIC PAINS, ALL ELSE IS NEG Assessment and Plan Assessmemt and Plan Problems Medical Problems: (1) STEMI (ST elevation myocardial infarction) Status: Acute Problems: Comment Review of Relevant I have reviewed the following items bryant (where applicable) has been applied. Labs Laboratory Tests Test 06/29/16 12:05 06/29/16 12:08 06/29/16 12:10 06/29/16 22:00 White Blood Count 11.2x10^3/uL (4.0-11.0) Red Blood Count 4.59x10^6/uL (4.30-5.70) Hemoglobin 13.7g/dL (13.0-17.5) Hematocrit 42.1% (39.0-53.0) Mean Corpuscular Volume 92fL (79-100) Mean Corpuscular Hemoglobin 30pg (25-35) Mean Corpuscular Hemoglobin Concent 33g/dL (31-37) Red Cell Distribution Width 13.6% (11.5-14.5) Platelet Count 238x10^3/uL (140-400) Neutrophils (%) (Auto) 88% (31-73) Lymphocytes (%) (Auto) 6% (24-48) Monocytes (%) (Auto) 7% (0-9) Eosinophils (%) (Auto) 0% (0-3) Basophils (%) (Auto) 0% (0-3) Neutrophils # (Auto) 9.8x10^3uL (1.8-7.7) Lymphocytes # (Auto) 0.6x10^3/uL (1.0-4.8) Monocytes # (Auto) 0.7x10^3/uL (0.0-1.1) Eosinophils # (Auto) 0.0x10^3/uL (0.0-0.7) Basophils # (Auto) 0.0x10^3/uL (0.0-0.2) Segmented Neutrophils % 78% (35-66) Band Neutrophils % 14% (0-9) Lymphocytes % 4% (24-48) Monocytes % 4% (0-10) Toxic Granulation Mod Platelet Estimate Adequate (ADEQUATE) Prothrombin Time 11.2SEC (11.7-14.0) Prothromb Time International Ratio 0.9 (0.8-1.1) Sodium Level 144mmol/L (136-145) Potassium Level 4.7mmol/L (3.5-5.1) Chloride Level 104mmol/L (98-107) Carbon Dioxide Level 24mmol/L (21-32) Anion Gap 16 (6-14) 18mmol/L (6-14) Blood Urea Nitrogen 15mg/dL (8-26) Creatinine 1.0mg/dL (0.7-1.3) Estimated GFR (Cockcroft-Gault) 74.3 Glucose Level 191mg/dL (70-99) 190mg/dL (70-99) Calcium Level 10.3mg/dL (8.5-10.1) Magnesium Level 2.1mg/dL (1.8-2.4) Total Bilirubin 0.5mg/dL (0.2-1.0) Direct Bilirubin 0.1mg/dL (0.0-0.2) Aspartate Amino Transf (AST/SGOT) 473U/L (15-37) Alanine Aminotransferase (ALT/SGPT) 79U/L (16-63) Alkaline Phosphatase 84U/L (46-116) Creatine Kinase 4505U/L (39-308) 6680U/L (39-308) Creatine Kinase MB (Mass) 557.5ng/mL (0.0-3.6) 686.9ng/mL (0.0-3.6) Creatine Kinase MB Relative Index 12.4% (0-4) 10.3% (0-4) Troponin I Quantitative 92.517ng/mL (0.000-0.055) IM-Fss-E-Type Natriuretic Peptide 1466pg/mL (0-124) Total Protein 8.3g/dL (6.4-8.2) Albumin 4.4g/dL (3.4-5.0) Bedside Troponin I 41.31ng/ml (<0.08) Bedside Hemoglobin 14.3g/dL (14-18) Bedside Hematocrit 42% (37-52) Bedside Sodium 140mmol/L (135-145) Bedside Potassium 4.2mmol/L (3.5-5.0) Bedside Chloride 104mmol/L (98-110) Bedside Total CO2 23mmol/L (23-32) Bedside Blood Urea Nitrogen 13mg/dL (8-26) Bedside Creatinine 0.8mg/dL (0.5-1.4) Bedside Ionized Calcium (Cheikh) 1.11mmol/L (1.13-1.32) Test 06/30/16 06:50 Sodium Level 136mmol/L (136-145) Potassium Level 4.8mmol/L (3.5-5.1) Chloride Level 99mmol/L (98-107) Carbon Dioxide Level 22mmol/L (21-32) Anion Gap 15 (6-14) Blood Urea Nitrogen 32mg/dL (8-26) Creatinine 2.3mg/dL (0.7-1.3) Estimated GFR (Cockcroft-Gault) 28.4 Glucose Level 156mg/dL (70-99) Calcium Level 9.0mg/dL (8.5-10.1) Total Bilirubin 0.6mg/dL (0.2-1.0) Direct Bilirubin 0.2mg/dL (0.0-0.2) Aspartate Amino Transf (AST/SGOT) 650U/L (15-37) Alanine Aminotransferase (ALT/SGPT) 124U/L (16-63) Alkaline Phosphatase 63U/L (46-116) Creatine Kinase 4896U/L (39-308) Creatine Kinase MB (Mass) 328.7ng/mL (0.0-3.6) Creatine Kinase MB Relative Index 6.7% (0-4) Total Protein 7.8g/dL (6.4-8.2) Albumin 3.5g/dL (3.4-5.0) Triglycerides Level 66mg/dL (0-150) Cholesterol Level 177mg/dL (0-200) LDL Cholesterol, Calculated 56mg/dL (0-100) VLDL Cholesterol, Calculated 13mg/dL (0-40) HDL Cholesterol 108mg/dL (40-60) Cholesterol/HDL Ratio 1.6 Laboratory Tests Test 06/29/16 12:05 06/29/16 12:08 06/29/16 12:10 06/29/16 22:00 White Blood Count 11.2x10^3/uL (4.0-11.0) Red Blood Count 4.59x10^6/uL (4.30-5.70) Hemoglobin 13.7g/dL (13.0-17.5) Hematocrit 42.1% (39.0-53.0) Mean Corpuscular Volume 92fL (79-100) Mean Corpuscular Hemoglobin 30pg (25-35) Mean Corpuscular Hemoglobin Concent 33g/dL (31-37) Red Cell Distribution Width 13.6% (11.5-14.5) Platelet Count 238x10^3/uL (140-400) Neutrophils (%) (Auto) 88% (31-73) Lymphocytes (%) (Auto) 6% (24-48) Monocytes (%) (Auto) 7% (0-9) Eosinophils (%) (Auto) 0% (0-3) Basophils (%) (Auto) 0% (0-3) Neutrophils # (Auto) 9.8x10^3uL (1.8-7.7) Lymphocytes # (Auto) 0.6x10^3/uL (1.0-4.8) Monocytes # (Auto) 0.7x10^3/uL (0.0-1.1) Eosinophils # (Auto) 0.0x10^3/uL (0.0-0.7) Basophils # (Auto) 0.0x10^3/uL (0.0-0.2) Segmented Neutrophils % 78% (35-66) Band Neutrophils % 14% (0-9) Lymphocytes % 4% (24-48) Monocytes % 4% (0-10) Toxic Granulation Mod Platelet Estimate Adequate (ADEQUATE) Prothrombin Time 11.2SEC (11.7-14.0) Prothromb Time International Ratio 0.9 (0.8-1.1) Sodium Level 144mmol/L (136-145) Potassium Level 4.7mmol/L (3.5-5.1) Chloride Level 104mmol/L (98-107) Carbon Dioxide Level 24mmol/L (21-32) Anion Gap 16 (6-14) 18mmol/L (6-14) Blood Urea Nitrogen 15mg/dL (8-26) Creatinine 1.0mg/dL (0.7-1.3) Estimated GFR (Cockcroft-Gault) 74.3 Glucose Level 191mg/dL (70-99) 190mg/dL (70-99) Calcium Level 10.3mg/dL (8.5-10.1) Magnesium Level 2.1mg/dL (1.8-2.4) Total Bilirubin 0.5mg/dL (0.2-1.0) Direct Bilirubin 0.1mg/dL (0.0-0.2) Aspartate Amino Transf (AST/SGOT) 473U/L (15-37) Alanine Aminotransferase (ALT/SGPT) 79U/L (16-63) Alkaline Phosphatase 84U/L (46-116) Creatine Kinase 4505U/L (39-308) 6680U/L (39-308) Creatine Kinase MB (Mass) 557.5ng/mL (0.0-3.6) 686.9ng/mL (0.0-3.6) Creatine Kinase MB Relative Index 12.4% (0-4) 10.3% (0-4) Troponin I Quantitative 92.517ng/mL (0.000-0.055) EC-Tuh-O-Type Natriuretic Peptide 1466pg/mL (0-124) Total Protein 8.3g/dL (6.4-8.2) Albumin 4.4g/dL (3.4-5.0) Bedside Troponin I 41.31ng/ml (<0.08) Bedside Hemoglobin 14.3g/dL (14-18) Bedside Hematocrit 42% (37-52) Bedside Sodium 140mmol/L (135-145) Bedside Potassium 4.2mmol/L (3.5-5.0) Bedside Chloride 104mmol/L (98-110) Bedside Total CO2 23mmol/L (23-32) Bedside Blood Urea Nitrogen 13mg/dL (8-26) Bedside Creatinine 0.8mg/dL (0.5-1.4) Bedside Ionized Calcium (Cheikh) 1.11mmol/L (1.13-1.32) Test 06/30/16 06:50 Sodium Level 136mmol/L (136-145) Potassium Level 4.8mmol/L (3.5-5.1) Chloride Level 99mmol/L (98-107) Carbon Dioxide Level 22mmol/L (21-32) Anion Gap 15 (6-14) Blood Urea Nitrogen 32mg/dL (8-26) Creatinine 2.3mg/dL (0.7-1.3) Estimated GFR (Cockcroft-Gault) 28.4 Glucose Level 156mg/dL (70-99) Calcium Level 9.0mg/dL (8.5-10.1) Total Bilirubin 0.6mg/dL (0.2-1.0) Direct Bilirubin 0.2mg/dL (0.0-0.2) Aspartate Amino Transf (AST/SGOT) 650U/L (15-37) Alanine Aminotransferase (ALT/SGPT) 124U/L (16-63) Alkaline Phosphatase 63U/L (46-116) Creatine Kinase 4896U/L (39-308) Creatine Kinase MB (Mass) 328.7ng/mL (0.0-3.6) Creatine Kinase MB Relative Index 6.7% (0-4) Total Protein 7.8g/dL (6.4-8.2) Albumin 3.5g/dL (3.4-5.0) Triglycerides Level 66mg/dL (0-150) Cholesterol Level 177mg/dL (0-200) LDL Cholesterol, Calculated 56mg/dL (0-100) VLDL Cholesterol, Calculated 13mg/dL (0-40) HDL Cholesterol 108mg/dL (40-60) Cholesterol/HDL Ratio 1.6 Medications Current Medications Aspirin (Alexys Aspirin) 325 mg STNanoInk-MED ONCE .ROUTE ; Start 06/29/16 at 12:01; Stop 06/29/16 at 12:02; Status DC Heparin Sodium (Porcine) 10,000 unit STK-MED ONCE .ROUTE ; Start 06/29/16 at 12: 01; Stop 06/29/16 at 12:02; Status DC Ondansetron HCl (Zofran) 4 mg STK-MED ONCE .ROUTE ; Start 06/29/16 at 12:17; Stop 06/29/16 at 12:18; Status DC Aspirin (Children'S Aspirin) 324 mg 1X ONCE PO Last administered on 06/29/16 12:05; Start 06/29/16 at 12:30; Stop 06/29/16 at 12:36; Status DC Heparin Sodium (Porcine) 3,000 unit 1X ONCE IV Last administered on 06/29/16 12:05; Start 06/29/16 at 12:30; Stop 06/29/16 at 12:36; Status DC Morphine Sulfate 2 mg PRN Q15MIN PRN IV/SQ PAIN GREATER THAN 3/10 Last administered on 06/29/16 12:25; Start 06/29/16 at 12:30; Stop 06/30/16 at 12:29 Ondansetron HCl (Zofran) 4 mg 1X ONCE IV Last administered on 06/29/16 12:24 ; Start 06/29/16 at 12:30; Stop 06/29/16 at 12:36; Status DC Morphine Sulfate 2 mg 2 mg STK-MED ONCE .ROUTE ; Start 06/29/16 at 12:18; Stop 06/29/16 at 12:19; Status DC Heparin Sodium/ Sodium Chloride 1,000 ml @ As Directed STK-MED ONCE .ROUTE ; Start 06/29/16 at 12:23; Stop 06/29/16 at 12:24; Status DC Lidocaine HCl 20 ml STK-MED ONCE .ROUTE ; Start 06/29/16 at 12:24; Stop at 12:25; Status DC Iodixanol (Visipaque 320) 100 ml STK-MED ONCE .ROUTE ; Start 06/29/16 at 12:24; Stop 06/29/16 at 12:25; Status DC Iodixanol (Visipaque 320) 100 ml STK-MED ONCE .ROUTE ; Start 06/29/16 at 12:24; Stop 06/29/16 at 12:25; Status DC Nitroglycerin (Nitroglycerin) 200 mcg STK-MED ONCE .ROUTE ; Start 06/29/16 at 12 :29; Stop 06/29/16 at 12:30; Status DC Verapamil HCl (Verapamil) 5 mg STK-MED ONCE .ROUTE ; Start 06/29/16 at 12:29; Stop 06/29/16 at 12:30; Status DC Heparin Sodium (Porcine) 10,000 unit STK-MED ONCE .ROUTE ; Start 06/29/16 at 12: 29; Stop 06/29/16 at 12:30; Status DC Fentanyl Citrate (Fentanyl 2ml Vial) 100 mcg STK-MED ONCE .ROUTE ; Start at 12:29; Stop 06/29/16 at 12:30; Status DC Midazolam HCl 2 mg 2 mg STK-MED ONCE .ROUTE ; Start 06/29/16 at 12:30; Stop at 12:31; Status DC Tirofiban/Sodium Chloride (Aggrastat 12.5 Mg/250 ml Premix) 250 ml @ As Directed STK-MED ONCE IV ; Start 06/29/16 at 12:45; Stop 06/29/16 at 12:46; Status DC Nitroglycerin (Nitroglycerin) 200 mcg 1X ONCE IART Last administered on 14:06; Start 06/29/16 at 13:00; Stop 06/29/16 at 13:03; Status DC Verapamil HCl (Verapamil) 2.5 mg 1X ONCE IART Last administered on 06/29/16 14:09; Start 06/29/16 at 13:00; Stop 06/29/16 at 13:03; Status DC Heparin Sodium (Porcine) 2,500 unit 1X ONCE IART Last administered on 14:13; Start 06/29/16 at 13:00; Stop 06/29/16 at 13:03; Status DC Heparin Sodium/ Sodium Chloride 1,000 unit 1X ONCE IART Last administered on 14:11; Start 06/29/16 at 13:00; Stop 06/29/16 at 13:03; Status DC Midazolam HCl (Versed) 1 mg 1X ONCE IV Last administered on 06/29/16 14:10; Start 06/29/16 at 12:45; Stop 06/29/16 at 13:03; Status DC Fentanyl Citrate (Fentanyl 2ml Vial) 50 mcg 1X ONCE IV Last administered on 14:10; Start 06/29/16 at 12:45; Stop 06/29/16 at 13:03; Status DC Iodixanol (Visipaque 320) 100 ml 1X ONCE IART Last administered on 06/29/16 14:09; Start 06/29/16 at 13:00; Stop 06/29/16 at 13:03; Status DC Lidocaine HCl 20 ml 20 ml 1X ONCE IJ Last administered on 06/29/16 14:11; Start 06/29/16 at 13:00; Stop 06/29/16 at 13:03; Status DC Tirofiban/Sodium Chloride 250 ml @ 0 mls/hr 1X ONCE IV Last administered on 12:48; Start 06/29/16 at 12:48; Stop 06/29/16 at 13:03; Status DC Tirofiban/Sodium Chloride (Aggrastat 12.5 Mg/250 ml Premix) 250 ml @ 0 mls/hr CONT PRN IV PER PROTOCOL Last administered on 06/29/16 14:08; Start 06/29/16 at 13:00; Stop 06/30/16 at 06:59; Status DC Info (Do NOT chart on this entry -- for MONITORING) 1 each PRN DAILY PRN MC SEE COMMENTS; Start 06/29/16 at 13:15; Stop 07/01/16 at 13:14 Phenylephrine HCl 1 mg 1 mg STK-MED ONCE IV ; Start 06/29/16 at 13:12; Stop at 13:13; Status DC Dopamine HCl/ Dextrose 250 ml @ As Directed STK-MED ONCE IV ; Start 06/29/16 at 13:16; Stop 06/29/16 at 13:17; Status DC Cangrelor (Kengreal) 50 mg STK-MED ONCE IV ; Start 06/29/16 at 13:36; Stop 06/29 at 13:37; Status DC Heparin Sodium (Porcine) 1,000 unit 1X ONCE IV Last administered on 06/29/16 14:14; Start 06/29/16 at 13:19; Stop 06/29/16 at 13:57; Status DC Phenylephrine HCl 0.1 mg 0.1 mg 1X ONCE IV Last administered on 06/29/16 14: 08; Start 06/29/16 at 13:15; Stop 06/29/16 at 13:57; Status DC Cangrelor/Sodium Chloride (Kengreal/Iv Sodium Chloride 0.9% 250ml) 250 ml @ 0 mls/hr CONT PRN PRN IV PER PROTOCOL Last administered on 06/29/16 14:07; Start 06/29/16 at 13:45; Stop 06/29/16 at 15:44; Status DC Atropine Sulfate 0.5 mg 1X ONCE IV Last administered on 06/29/16 14:08; Start 06/29/16 at 13:17; Stop 06/29/16 at 13:57; Status DC Sodium Chloride 3 ml 3 ml QSHIFT PRN IV AFTER MEDS AND BLOOD DRAWS; Start 06/29 at 14:00 Tirofiban/Sodium Chloride (Aggrastat 12.5 Mg/250 ml Premix) 250 ml @ 0 mls/hr CONT PRN IV PER PROTOCOL; Start 06/29/16 at 14:00; Stop 06/30/16 at 07:59; Status DC Aspirin (Ecotrin) 81 mg DAILYWBKFT PO ; Start 06/30/16 at 08:00 Ticagrelor (Brilinta) 90 mg BID PO ; Start 06/30/16 at 09:00 Metoprolol Tartrate (Lopressor) 25 mg BID PO Last administered on 06/29/16 20: 50; Start 06/29/16 at 21:00 Lisinopril (Prinivil) 5 mg DAILY PO ; Start 06/30/16 at 09:00 Atorvastatin Calcium (Lipitor) 40 mg QHS PO Last administered on 06/29/16 20: 50; Start 06/29/16 at 21:00 Acetaminophen (Tylenol) 650 mg PRN Q6HRS PRN PO MILD PAIN / TEMP; Start at 14:00 Fentanyl Citrate (Fentanyl 2ml Vial) 50 mcg PRN Q1HR PRN IV MODERATE OR SEVERE PAIN; Start 06/29/16 at 14:00 Cyclobenzaprine HCl (Flexeril) 10 mg PRN TID PRN PO MUSCLE SPASMS; Start at 14:00 Ondansetron HCl (Zofran) 4 mg PRN Q6HRS PRN IV NAUSEA/VOMITING; Start 06/29/16 at 14:00 Nitroglycerin 0.4 mg 0.4 mg PRN Q5MIN PRN SL CHEST PAIN Last administered on 02:08; Start 06/29/16 at 14:00 Amiodarone HCl/ Dextrose (Cordarone) 103 ml @ 10 mls/min 1X PRN PRN IV FOR VENTRICULAR TACHYCARDIA; Start 06/29/16 at 14:00 Lidocaine HCl 100 mg 1X PRN PRN IV FOR VENTRICULAR TACHYCARDIA; Start 06/29/16 at 14:00 Atropine Sulfate 0.5 mg PRN 1X PRN IV BRADYCARDIA; Start 06/29/16 at 14:00 Oxycodone/ Acetaminophen (Percocet 5/325) 1 tab PRN Q4HRS PRN PO MILD PAIN; Start 06/29/16 at 14:00 Morphine Sulfate 4 mg PRN Q2HR PRN IV PAIN Last administered on 06/30/16 02:07 ; Start 06/29/16 at 14:45 Ticagrelor (Brilinta) 180 mg 1X STAT PO Last administered on 06/29/16 16:40; Start 06/29/16 at 16:30; Stop 06/29/16 at 16:33; Status DC Insulin Aspart (Novolog) 0-9 UNITS TIDWMEALS SQ ; Start 06/30/16 at 08:00 Dextrose 12.5 gm PRN Q15MIN PRN IV SEE COMMENTS; Start 06/29/16 at 18:15 Active Scripts Active Reported No Known Medications Prior To Admisstion (Info) Each 1 Each Vitals/I & O Vital Sign - Last 24 Hours 06/29/16 06/29/16 06/29/16 06/29/16 11:37 11:50 11:59 12:10 Temp 98.1 98.1 Pulse 96 104 106 104 Resp B/P 148/89 162/80 167/93 171/93 Pulse Ox 100 98 98 98 O2 Delivery Room Air Room Air Room Air Room Air 06/29/16 06/29/16 06/29/16 06/29/16 13:45 14:09 14:10 14:25 Temp 98.3 98.3 Pulse 67 67 72 Resp 21 21 20 B/P 99/67 88/61 Pulse Ox 100 100 98 O2 Delivery Room Air Nasal Cannula Room Air O2 Flow Rate 2.0 06/29/16 06/29/16 06/29/16 06/29/16 14:56 15:00 15:26 15:37 Pulse 70 74 Resp 18 18 19 18 B/P 83/61 99/71 Pulse Ox 100 100 97 97 O2 Delivery Room Air Room Air Room Air Room Air 06/29/16 06/29/16 06/29/16 06/29/16 16:00 17:00 17:36 18:03 Temp 98.5 98.5 Pulse 81 71 74 Resp 21 20 20 20 B/P 112/76 115/76 108/72 Pulse Ox 88 100 99 96 O2 Delivery Room Air Nasal Cannula Nasal Cannula O2 Flow Rate 4.0 2.0 2.0 06/29/16 06/29/16 06/29/16 06/29/16 19:00 20:00 20:00 20:50 Temp 99.2 99.2 Pulse 76 80 95 Resp 16 B/P 105/78 116/78 118/78 Pulse Ox 98 97 O2 Delivery Nasal Cannula Nasal Cannula Nasal Cannula O2 Flow Rate 2.0 2.0 2.0 06/29/16 06/29/16 06/29/16 06/29/16 21:00 22:00 22:06 23:00 Pulse 95 88 79 Resp 16 16 B/P 118/78 109/68 101/68 Pulse Ox 96 98 98 95 O2 Delivery Nasal Cannula Nasal Cannula Nasal Cannula Nasal Cannula O2 Flow Rate 2.0 2.0 2.0 2.0 06/30/16 06/30/16 06/30/16 06/30/16 00:00 00:05 01:00 02:00 Temp 97.7 97.7 Pulse 74 74 76 Resp 17 19 B/P 95/68 87/60 97/60 Pulse Ox 90 93 93 O2 Delivery Nasal Cannula Nasal Cannula Nasal Cannula Nasal Cannula O2 Flow Rate 2.0 2.0 2.0 2.0 06/30/16 06/30/16 06/30/16 06/30/16 02:07 02:08 03:00 04:00 Temp 98.1 98.1 Pulse 88 102 74 Resp 23 19 23 B/P 97/65 116/72 93/69 Pulse Ox 93 96 O2 Delivery Nasal Cannula Nasal Cannula Nasal Cannula O2 Flow Rate 2.0 2.0 2.0 06/30/16 06/30/16 06/30/16 04:14 05:00 07:00 Pulse 76 75 Resp 24 20 B/P 100/73 111/68 Pulse Ox 95 95 O2 Delivery Nasal Cannula Nasal Cannula Nasal Cannula O2 Flow Rate 2.0 2.0 2.0 Intake and Output 06/29/16 06/29/16 06/30/16 15:00 23:00 07:00 Intake Total 50 ml 180 ml 120 ml Balance 50 ml 180 ml 120 ml WESLEY KLEIN MD Jun 30, 2016 08:15
[2016-06-30] MEDS: ASPIRIN ENTERIC COATED 81 MG TABLET.DR. PO SCH (08:43)
[2016-06-30] MEDS: METOPROLOL TART IMMED RELEASE 25 MG TABLET PO SCH (08:43)
[2016-06-30] MEDS: TICAGRELOR 90 MG TABLET. PO SCH ×2 (08:46→21:33)
[2016-06-30] MEDS ORDERED: LISINOPRIL 5 MG TABLET. PO SCH (09:00)
--- NOTE | 2016-06-30 10:31 | CARD ---
APPROVED REPORT EXAM: Two-dimensional and M-mode echocardiogram with Doppler and color Doppler. Other Information Quality : Average Rhythm : NSR INDICATION STEMI 2D DIMENSIONS RVDd2.4 (2.9-3.5cm)Left Atrium(2D)2.7 (1.6-4.0cm) IVSd0.8 (0.7-1.1cm)Aortic Root(2D)2.7 (2.0-3.7cm) LVDd4.5 (3.9-5.9cm)LVOT Diameter2.0 (1.8-2.4cm) PWd0.8 (0.7-1.1cm)LVDs3.5 (2.5-4.0cm) FS (%) 21.0 %SV38.9 ml LVEF(%)42.9 (>50%) Aortic Valve AoV Peak Moris.86.4cm/sAoV VTI14.4cm AO Peak GR.3.0mmHgLVOT VTI 7.02cm AO Mean GR.2mmHg Mitral Valve MV E Eoyfydsu25.7cm/sMV E Peak Gr.2mmHg MV DECEL [id number] A Rbwbbaji42.9cm/s MV E Mean Gr.1mmHgMV [id number] E/A Ratio1.0MV A [id number] MVA (PHT)4.78cm2 TDI Lateral E' P. V5.11cm/sMedial E' P. V5.62cm/s E/Lateral E'8.2E/Medial E'7.4 Tricuspid Valve TR P. [id number]/sRAP [id number] TR Peak Gr.[id number] LEFT VENTRICLE The left ventricle is normal size. There is normal left ventricular wall thickness. Left ventricle sy stolic function is mildly impaired. The Ejection Fraction is 40-45%. Mid to basal inferior and latera l hypokinesis. Tissue Doppler imaging reveals mild left ventricular diastolic dysfunction. Transmitra l Doppler flow pattern is Grade I-abnormal relaxation pattern. RIGHT VENTRICLE The right ventricle is normal size. The right ventricular systolic function is normal. ATRIA The left atrium size is normal. The right atrium size is normal. The interatrial septum is intact wit h no evidence for an atrial septal defect or patent foramen ovale as noted on 2-D or Doppler imaging. AORTIC VALVE The aortic valve is normal in structure and function. The aortic valve is trileaflet. Doppler and Col or Flow revealed no significant aortic regurgitation. There is no significant aortic valvular stenosi s. MITRAL VALVE The mitral valve is normal in structure and function. There is no mitral valve stenosis. Doppler and Color Flow revealed mild mitral regurgitation. TRICUSPID VALVE The tricuspid valve is normal in structure and function. Doppler and Color Flow revealed mild tricusp id regurgitation. The PA pressure was estimated at 22 mmHg. There is no tricuspid valve stenosis. PULMONIC VALVE The pulmonic valve is not well visualized. Doppler and Color Flow revealed no pulmonic valvular regur gitation. There is no pulmonic valvular stenosis. GREAT VESSELS The aortic root is normal in size. Pulmonary veins not recorded. The IVC is normal in size and collap ses <50% with inspiration. PERICARDIAL EFFUSION There is no evidence of significant pericardial effusion. Critical Notification Critical Value: No <Conclusion> The left ventricle is normal size. Left ventricle systolic function is mildly impaired. The Ejection Fraction is 40-45%. Mid to basal inferior and lateral hypokinesis. There is no significant aortic valvular stenosis. Doppler and Color Flow revealed no significant aortic regurgitation. Doppler and Color Flow revealed mild mitral regurgitation. Doppler and Color Flow revealed mild tricuspid regurgitation. The PA pressure was estimated at 22 mmHg.
[2016-06-30] MEDS ORDERED: DOPAMINE 400MG/250ML PREMIX BAG. IV ONE (11:00)
[2016-06-30] MEDS ORDERED: DOPAMINE 400MG/250ML PREMIX 250 ML IV ONE (11:04)
[2016-06-30] MEDS ORDERED: NOREPINEPHRINE VIAL 8 MG in IV NORMAL SALINE 250ML 250 ML IV PRN (11:30)
[2016-06-30 12:46] LABS: BILIRUBIN,URINE NEGATIVE (NEG); GLUCOSE,URINE 100 mg/dL (NEG); NITRITE,URINE NEGATIVE (NEG); PROTEIN,URINE 100 mg/dL (NEG-TRACE); UROBILINOGEN,URINE 0.2 mg/dL (0.2 mg/dL)
[2016-06-30 13:06] LABS: BACTERIA,URINE 0 /HPF (0-FEW)
--- NOTE | 2016-06-30 13:32 | PDOC ---
LIN DELA CRUZ ON SITE NURSE 06/30/16 1332: CARDIO Progress Notes Date and Time Date of Service 06/30/16 Time of Evaluation 1045 Subjective Subjective: No shortness of breath, No Palpitations, No Dizziness, Other (some mild CP) Vitals Vitals Vital Signs Date Time Temp Pulse Resp B/P Pulse Ox O2 Delivery O2 Flow Rate FiO2 06/30/16 12:00 Nasal Cannula 2.0 06/30/16 08:44 83 122/71 06/30/16 07:00 20 95 06/30/16 04:00 98.1 98.1 Weight Weight [ ] Input and Output Intake and Output Intake and Output 06/30/16 07:00 Intake Total 350 ml Balance 350 ml Intake Oral 350 ml # Voids 1 Laboratory Labs Laboratory Tests Test 06/29/16 14:40 06/29/16 22:00 06/30/16 06:50 06/30/16 09:00 Nasal Screen MRSA (PCR) Negative (Negative) Creatine Kinase 6680U/L (39-308) 4896U/L (39-308) Creatine Kinase MB (Mass) 686.9ng/mL (0.0-3.6) 328.7ng/mL (0.0-3.6) Creatine Kinase MB Relative Index 10.3% (0-4) 6.7% (0-4) Sodium Level 136mmol/L (136-145) Potassium Level 4.8mmol/L (3.5-5.1) Chloride Level 99mmol/L (98-107) Carbon Dioxide Level 22mmol/L (21-32) Anion Gap 15 (6-14) Blood Urea Nitrogen 32mg/dL (8-26) Creatinine 2.3mg/dL (0.7-1.3) Estimated GFR (Cockcroft-Gault) 28.4 Glucose Level 156mg/dL (70-99) Calcium Level 9.0mg/dL (8.5-10.1) Total Bilirubin 0.6mg/dL (0.2-1.0) Direct Bilirubin 0.2mg/dL (0.0-0.2) Aspartate Amino Transf (AST/SGOT) 650U/L (15-37) Alanine Aminotransferase (ALT/SGPT) 124U/L (16-63) Alkaline Phosphatase 63U/L (46-116) Total Protein 7.8g/dL (6.4-8.2) Albumin 3.5g/dL (3.4-5.0) Triglycerides Level 66mg/dL (0-150) Cholesterol Level 177mg/dL (0-200) LDL Cholesterol, Calculated 56mg/dL (0-100) VLDL Cholesterol, Calculated 13mg/dL (0-40) HDL Cholesterol 108mg/dL (40-60) Cholesterol/HDL Ratio 1.6 Prostate Specific Antigen 2.82ng/mL (0.00-4.00) Urine Collection Type Unknown Urine Color Yellow Urine Clarity Clear Urine pH 6.0 Urine Specific [place] >=1.030 Urine Protein 100mg/dL (NEG-TRACE) Urine Glucose (UA) 100mg/dL (NEG) Urine Ketones (Stick) Negativemg/dL (NEG) Urine Blood Trace (NEG) Urine Nitrite Negative (NEG) Urine Bilirubin Negative (NEG) Urine Urobilinogen Dipstick 0.2mg/dL (0.2 mg/dL) Urine Leukocyte Esterase Negative (NEG) Urine RBC 11-20/HPF (0-2) Urine WBC 1-4/HPF (0-4) Urine Bacteria 0/HPF (0-FEW) Urine Hyaline Casts Many/HPF Urine Mucus Marked/LPF Physical Exam HEENT: Neck Supple W Full Motion Chest: Symmetric LUNGS: Clear to Auscultation Heart: S1S2, other (tele: SB rate 40) Abdomen: Soft N/T Extremities: 2+ Dorsalis Pedis, No Edema Neurology: alert, oriented, follow commands Assessment Assessment 1. STEMI; s/p PCI/PAUL to RCA 2. Transient bradycardia related to above. 3. Systolic heart failure with ICM; LVEF 40-45% 4. Hypotension 5. ANDIE 6. Urinary retention Recommendations Hold metoprolol with significant bradycardia; start dopamine- titrate as warranted Hold CHARI for now; resume when BP consistently adequate DAPT with ASA and Brilinta Risk stratification modification Cardiac rehab referral HF optimization as able Monitor labs DO EDWARDS MD 06/30/16 1346: CARDIO Progress Notes Plan Plan Pt. seen and examined. AGree with above FOUNTAIN CLERK Note. Expected bradycardia post large RCA infarct. Vagal syndrome Pressors for supportive care On exam he appears to be in mild distress. Echo with mild LV dysfunction. No significant valvular disease. Will follow. LIN DELA CRUZ APRN Jun 30, 2016 13:32 DO EDWARDS MD Jun 30, 2016 13:46
[2016-06-30] MEDS ORDERED: FUROSEMIDE 20 MG/2 ML VIAL IVP ONE (13:45)
--- NOTE | 2016-06-30 14:01 | RAD ---
Indication shortness of air. A single view of the chest was obtained and is compared to a study one day earlier. There has been some interval deterioration. Heart size is likely slightly larger. There are now patchy infiltrates in both lungs suggesting superimposed congestive heart failure. There is likely a small right pleural effusion. There is no pneumothorax. The stomach is somewhat distended with air. IMPRESSION: Interval worsening. There are findings suggesting congestive heart failure on today's exam. There is likely a small right pleural effusion
[2016-06-30 14:37] LABS: CKMB MASS 254.8 ng/mL (0.0-3.6)
[2016-06-30 14:38] LABS: CKMB INDEX 7.9 % (0-4)
[2016-06-30] MEDS ORDERED: FUROSEMIDE 40 MG/4 ML VIAL IVP ONE (17:30)
[2016-06-30] MEDS: ATORVASTATIN CALCIUM 40 MG TABLET. PO SCH (21:33)
[2016-07-01] VITALS (15 sets, daily range): BP systolic 90–117; BP diastolic 52–71
[2016-07-01 05:34] LABS: CALCIUM 8.9 mg/dL (8.5-10.1); CREATININE 1.5 mg/dL (0.7-1.3); GFR 46.5; POTASSIUM 4.1 mmol/L (3.5-5.1)
[2016-07-01] MEDS: FENTANYL PF 100 MCG/2 ML VIAL. IV PRN ×2 (06:02→16:53)
[2016-07-01] MEDS: INSULIN ASPART 300 UNITS/3 ML INSULN.PEN SQ SCH ×3 (08:00→17:00)
[2016-07-01] MEDS: TICAGRELOR 90 MG TABLET. PO SCH ×2 (08:41→20:54)
[2016-07-01] MEDS: ASPIRIN ENTERIC COATED 81 MG TABLET.DR. PO SCH (08:42)
--- NOTE | 2016-07-01 08:59 | PDOC ---
PROGRESS NOTES Chief Complaint Chief Complaint STEMI ASSESSMENT AND PLAN: 1. Inferior STEMI: Proximal RCA occlusion, s/p stenting on 06/[address] Campbell. LVEF 45% with inferior wall HK. 2. Transient bradycardia due to inferior STEMI. recovered 3. ANDIE: possible contrast induced nephropathy. improving. cont IVF 4. Hyponatremia: new. 2/2 renal recovery. 4. Urinary retention: BPH. start flomax. Dr Turpin consulted 6. Dispo: transfer to Vitals Vitals Vital Signs Date Time Temp Pulse Resp B/P Pulse Ox O2 Delivery O2 Flow Rate FiO2 07/01/16 06:32 18 Nasal Cannula 2.0 07/01/16 06:00 87 113/68 99 07/01/16 04:00 99.7 99.7 Physical Exam General: Alert, Oriented X3, Cooperative, No acute distress Heart: Regular rate, No murmurs Lungs: Clear Abdomen: Normal bowel sounds Extremities: No clubbing, No cyanosis, No edema Skin: No rashes, No breakdown, No significant lesion Labs LABS Laboratory Tests Test 06/30/16 09:00 06/30/16 13:55 07/01/16 04:40 Urine Collection Type Unknown Urine Color Yellow Urine Clarity Clear Urine pH 6.0 Urine Specific [place] >=1.030 Urine Protein 100mg/dL (NEG-TRACE) Urine Glucose (UA) 100mg/dL (NEG) Urine Ketones (Stick) Negativemg/dL (NEG) Urine Blood Trace (NEG) Urine Nitrite Negative (NEG) Urine Bilirubin Negative (NEG) Urine Urobilinogen Dipstick 0.2mg/dL (0.2 mg/dL) Urine Leukocyte Esterase Negative (NEG) Urine RBC 11-20/HPF (0-2) Urine WBC 1-4/HPF (0-4) Urine Bacteria 0/HPF (0-FEW) Urine Hyaline Casts Many/HPF Urine Mucus Marked/LPF Creatine Kinase 3227U/L (39-308) Creatine Kinase MB (Mass) 254.8ng/mL (0.0-3.6) Creatine Kinase MB Relative Index 7.9% (0-4) Sodium Level 133mmol/L (136-145) Potassium Level 4.1mmol/L (3.5-5.1) Chloride Level 98mmol/L (98-107) Carbon Dioxide Level 21mmol/L (21-32) Anion Gap 14 (6-14) Blood Urea Nitrogen 39mg/dL (8-26) Creatinine 1.5mg/dL (0.7-1.3) Estimated GFR (Cockcroft-Gault) 46.5 Glucose Level 132mg/dL (70-99) Calcium Level 8.9mg/dL (8.5-10.1) Review of Systems Review of Systems feels fine, no new sx. no CP, no SOB JAK GOMEZ MD Jul 01, 2016 08:58
--- NOTE | 2016-07-01 11:13 | PDOC ---
LIN DELA CRUZ DEFECT CUTTER 07/01/16 1113: CARDIO Progress Notes Date and Time Date of Service 07/01/16 Time of Evaluation 1050 Subjective Subjective: No Chest Pain, No shortness of breath, No Palpitations, No Dizziness, Other (facial, chest, and upper ext flushing ) Vitals Vitals Vital Signs Date Time Temp Pulse Resp B/P Pulse Ox O2 Delivery O2 Flow Rate FiO2 07/01/16 06:32 18 Nasal Cannula 2.0 07/01/16 06:00 87 113/68 99 07/01/16 04:00 99.7 99.7 Weight Weight [ ] Input and Output Intake and Output Intake and Output 07/01/16 07:00 Intake Total 2099.5 ml Output Total 2780 ml Balance -680.5 ml Intake Oral 320 ml IV Total 1646.5 ml Blood Product IV Normal Saline Flush 133 ml Output Urine Total 2780 ml Laboratory Labs Laboratory Tests Test 06/30/16 13:55 07/01/16 04:40 Creatine Kinase 3227U/L (39-308) Creatine Kinase MB (Mass) 254.8ng/mL (0.0-3.6) Creatine Kinase MB Relative Index 7.9% (0-4) Sodium Level 133mmol/L (136-145) Potassium Level 4.1mmol/L (3.5-5.1) Chloride Level 98mmol/L (98-107) Carbon Dioxide Level 21mmol/L (21-32) Anion Gap 14 (6-14) Blood Urea Nitrogen 39mg/dL (8-26) Creatinine 1.5mg/dL (0.7-1.3) Estimated GFR (Cockcroft-Gault) 46.5 Glucose Level 132mg/dL (70-99) Calcium Level 8.9mg/dL (8.5-10.1) Physical Exam HEENT: Neck Supple W Full Motion, Other (facial flushing ) Chest: Symmetric, Other (diffuse erythema ) LUNGS: Clear to Auscultation Heart: S1S2, RRR, other (tele: SR-ST) Abdomen: Soft N/T Extremities: 2+ Dorsalis Pedis, No Edema Neurology: alert, oriented, follow commands Other Exams valdez cath in place Assessment Assessment 1. STEMI; s/p PCI/PAUL to RCA 2. Transient bradycardia; resolved. 3. Acute systolic heart failure with ICM; LVEF 40-45% 4. ANDIE 5. Urinary retention; Flomax initiated Recommendations May transfer to CVC No CHARI/BB for now with low-normotensive pressures and transient bradycardia. DAPT with ASA and Brilinta ? need for maintenance diuretic- reevaluate fluid status in am Monitor flushing- ?medication reaction- PRN Benadryl Caution use of Flomax with hypotension DO EDWARDS MD 07/01/16 3829: CARDIO Progress Notes Plan Plan Patient seen and examined. Agree with above nurse practitioner noted. Overall improved from a respiratory standpoint overnight. Denies any chest pain today. Mild rales at the bases persistent. No edema. Off vasopressors. Hold on metoprolol. Continue diuresis. Will follow along closely. Discussed with family at bedside. He still critically ill. LIN DELA CRUZ APRN Jul 01, 2016 11:13 DO EDWARDS MD Jul 01, 2016 16:59
[2016-07-01] MEDS ORDERED: METOPROLOL TART IMMED RELEASE 25 MG TABLET PO SCH (12:00)
--- NOTE | 2016-07-01 13:56 | PDOC ---
Provider Note Provider Note Urology: Consult dictated c/c urine retention Patient examined, chart reviewed Plan: agree starting Flomax Remove valdez when patient upstairs for voiding trial while on Flomax f/u progress with Post Void bladder scans b.i.d. Will need outpatient w/u for BPH after cleared by Cardiology Thank you, ROCKY ABDULLAHI DO Jul 01, 2016 13:56
--- NOTE | 2016-07-01 15:00 | RAD ---
Single portable upright view the chest compared to similar study dated 06/30/2016 for history of CHF. Findings: Lungs are slightly better aerated, with persistent patchy airspace disease in both lung bases concerning for residual pneumonia and/or atelectasis. Small pleural effusions are likely present as well. Overall appearance of the vasculature is improved. Heart size within normal limits. Impression: 1. Persistent bibasilar atelectasis versus infiltrate, and small persistent bilateral pleural effusions. 2. Improved appearance of vasculature and improved aeration.
[2016-07-01] MEDS ORDERED: DIPHENHYDRAMINE HCL 25 MG CAPSULE PO PRN (15:45)
[2016-07-01] MEDS: TAMSULOSIN 0.4 MG CAP.ER.24H. PO SCH (20:54)
[2016-07-01] MEDS: ATORVASTATIN CALCIUM 40 MG TABLET. PO SCH (20:54)
--- NOTE | 2016-07-01 23:48 | CONS ---
DATE OF CONSULTATION: 07/01/2016 CHIEF COMPLAINT: Urinary retention. HISTORY OF PRESENT ILLNESS: This is a 70-year-old male who was admitted through the Emergency Room for chest pain. He was evaluated and found to have ST elevation myocardial infarction. Shortly after his admission, the patient developed urinary retention, inability to void. A bladder scan was performed which revealed about 403 mL of urine. He is uncomfortable. Therefore, the nursing staff placed a Kapoor catheter. The patient denies any history of prostate problems. He has not had any prostate surgery; however, at home, he states that he gets up 4-5 times at night. During the daytime, he voids about every 4 hours. His stream is reportedly somewhat weak. He states he drinks a lot of water at home. The patient states that he does not see a doctor on a regular basis and he has no known chronic medical problems. He evidently did have a heart catheterization back in the . PAST SURGICAL HISTORY: The patient had left inguinal hernia repair in 2004. REVIEW OF SYSTEMS: As above and essentially negative. ALLERGIES: No known drug allergies. PHYSICAL EXAMINATION: GENERAL DESCRIPTION: A 70-year-old male. He is alert and oriented. He denies any pain or discomfort. He is currently in ICU bed 4. He is scheduled to be transferred to the floor. ABDOMEN: The abdomen is soft, nontender. He has a thin body habitus. Negative for flank pain to palpation bilaterally. No palpable abdominal masses, no suprapubic tenderness. GENITALIA: The patient has an indwelling Kapoor catheter draining vicenta-colored urine. RECTAL: Not performed at this time. MUSCULOSKELETAL: Negative for cyanosis or edema. LABORATORY DATA: The patient had a PSA performed that came back 2.82. Electrolytes essentially normal. His BUN is 39, creatinine 1.5, glucose 132. The patient's creatinine kinase on admission was 4896, his CK-MB was elevated at 328.7. His elevated. The patient's white blood cell count on admission was 11.2, hemoglobin 13.7, hematocrit 42.1. Urinalysis, vicenta-colored urine, trace of protein, trace of glucose, trace of blood, negative for leukocytes; microscopically 11-20 red blood cells per high power field, 1-4 white blood cells, many casts. X-RAY STUDIES: No x-rays pertinent to the system. IMPRESSION: 1. Urinary retention. 2. Probable benign prostatic hypertrophy. PLAN: 1. The patient is being transferred to the floor the next day or so. We will remove the Kapoor catheter in the morning and give him a voiding trial since he has been started on Flomax during this admission. 2. We will follow his postvoid bladder scans. If he continues to have chronic urinary retention, we may reinsert the Kapoor catheter and schedule him for outpatient workup. ROCKY ABDULLAHI DO DR: DASHAWN/jet JOB#: [id number] / [id number]
[2016-07-02] VITALS (7 sets, daily range): BP systolic 101–123; BP diastolic 57–73
[2016-07-02] MEDS: INSULIN ASPART 300 UNITS/3 ML INSULN.PEN SQ SCH ×2 (08:00→12:00)
[2016-07-02] MEDS: TICAGRELOR 90 MG TABLET. PO SCH ×2 (09:18→22:00)
[2016-07-02] MEDS: ASPIRIN ENTERIC COATED 81 MG TABLET.DR. PO SCH (09:18)
--- NOTE | 2016-07-02 11:10 | PDOC ---
NISSA DELA CRUZILY TRINH 07/02/16 1110: CARDIO Progress Notes Date and Time Date of Service 07/02/16 Time of Evaluation 1035 Subjective Subjective: No Chest Pain, No Palpitations, No Dizziness, Other (flushing resolved. felling better today. SOA improved) Comments: doing well; no acute events overnight Vitals Vitals Vital Signs Date Time Temp Pulse Resp B/P Pulse Ox O2 Delivery O2 Flow Rate FiO2 07/02/16 10:44 97.8 110 18 110/65 92 Room Air 97.8 07/02/16 07:15 2.0 Weight Weight [ ] Input and Output Intake and Output Intake and Output 07/02/16 07:00 Intake Total 1140 ml Output Total 2125 ml Balance -985 ml Intake Oral 1140 ml Output Urine Total 2125 ml Laboratory Labs Laboratory Tests Test 07/01/16 12:20 07/01/16 16:57 07/01/16 20:55 Glucose (Fingerstick) 124mg/dL (70-99) 128mg/dL (70-99) 114mg/dL (70-99) Physical Exam HEENT: Neck Supple W Full Motion, Other Chest: Symmetric, Other LUNGS: Clear to Auscultation, Other (fine bibaslar crackles) Heart: S1S2, other (tele: SR-ST) Abdomen: Soft N/T Extremities: 2+ Dorsalis Pedis, No Edema Neurology: alert, oriented, follow commands Assessment Assessment 1. STEMI; s/p PCI/PAUL to RCA 2. Transient bradycardia; resolved. 3. Acute systolic heart failure with ICM; LVEF 40-45% 4. ANDIE Recommendations Mild diuresis Will add low-dose CHARI as BP allows am labs Continue secondary prevention, including DAPT with ASA and Brilinta If continues to do well, will plan for discharge tomorrow. DO EDWARDS MD 07/02/16 1271: CARDIO Progress Notes Plan Plan Patient seen and examined. Agree with above nurse practitioner. No acute events overnight. Reports that dyspnea is improved today. Normal cardiac exam. Labs reviewed. Low-dose CHARI inhibitor therapy and gentle diuresis as noted above. We will initiate beta blockade later this evening or early tomorrow depending on his heart rates. Anticipate discharge in the next 24 hours or so. LIN DELA CRUZ APRN Jul 02, 2016 11:10 DO EDWARDS MD Jul 02, 2016 18:58
[2016-07-02] MEDS: FUROSEMIDE 40 MG TABLET PO SCH (11:15)
--- NOTE | 2016-07-02 11:40 | PDOC ---
PROGRESS NOTES Chief Complaint Chief Complaint STEMI ASSESSMENT AND PLAN: 1. Inferior STEMI: Proximal RCA occlusion, s/p stenting on 06/[address] Campbell. LVEF 45% with inferior wall HK. 2. Transient bradycardia due to inferior STEMI. recovered 3. ANDIE: possible contrast induced nephropathy. improving. cont IVF 4. Hyponatremia: new. 2/2 renal recovery. 5. Urinary retention: BPH. start flomax. valdez was d/c.ed with recurrent sx. re-place, plan on 2 weeks, F/U on O/P basis with Dr Turpin 6. Dispo: home when cleared by cardiology Vitals Vitals Vital Signs Date Time Temp Pulse Resp B/P Pulse Ox O2 Delivery O2 Flow Rate FiO2 07/02/16 10:44 97.8 110 18 110/65 92 Room Air 97.8 07/02/16 07:15 2.0 Physical Exam General: Alert, Oriented X3, Cooperative, No acute distress Heart: Regular rate, No murmurs Lungs: Clear Abdomen: Normal bowel sounds Extremities: No clubbing, No cyanosis, No edema Skin: No rashes, No breakdown, No significant lesion Labs LABS Laboratory Tests Test 07/01/16 12:20 07/01/16 16:57 07/01/16 20:55 Glucose (Fingerstick) 124mg/dL (70-99) 128mg/dL (70-99) 114mg/dL (70-99) Review of Systems Review of Systems unable to urinate since D/C of Valdez at 3 AM. no CP no SOB or palpitations JAK GOMEZ MD Jul 02, 2016 11:40
[2016-07-02 12:12] LABS: BASO % 0 % (0-3); EOS % 0 % (0-3); HEMATOCRIT 38.5 % (39.0-53.0); HEMOGLOBIN 12.8 g/dL (13.0-17.5); LYMPH # 0.6 x10^3/uL (1.0-4.8); LYMPH % 5 % (24-48); MEAN CORPUSCULAR HEMOGLOBIN 30 pg (25-35); MEAN CORPUSCULAR HGB CONC 33 g/dL (31-37); MEAN CORPUSCULAR VOLUME 91 fL (79-100); MONO % 9 % (0-9); NEUT % 85 % (31-73); PLATELET COUNT 238 x10^3/uL (140-400); RED BLOOD COUNT 4.24 x10^6/uL (4.30-5.70); RED CELL DISTRIBUTION WIDTH 13.9 % (11.5-14.5); WHITE BLOOD COUNT 10.6 x10^3/uL (4.0-11.0)
[2016-07-02] MEDS ORDERED: LIDOCAINE 2% JELLY 6ML IN APPLICATOR. MM ONE (12:30)
[2016-07-02 12:43] LABS: CALCIUM 9.3 mg/dL (8.5-10.1); GFR 74.3; POTASSIUM 3.7 mmol/L (3.5-5.1)
[2016-07-02 12:48] LABS: ALBUMIN 2.7 g/dL (3.4-5.0); ALBUMIN/GLOBULIN RATIO 0.6 (1.0-1.7); TOTAL PROTEIN 7.2 g/dL (6.4-8.2)
[2016-07-02] MEDS: LISINOPRIL 5 MG TABLET. PO SCH (12:56)
[2016-07-02] MEDS ORDERED: METOPROLOL TARTRATE 5 MG/5 ML VIAL. IVP ONE (17:30)
[2016-07-02] MEDS: TAMSULOSIN 0.4 MG CAP.ER.24H. PO SCH (22:00)
[2016-07-02] MEDS: ATORVASTATIN CALCIUM 40 MG TABLET. PO SCH (22:00)
[2016-07-03 03:40] VITALS: BP 109/69
[2016-07-03 04:27] LABS: BASO % 0 % (0-3); EOS % 0 % (0-3); HEMATOCRIT 34.5 % (39.0-53.0); HEMOGLOBIN 11.9 g/dL (13.0-17.5); LYMPH # 0.9 x10^3/uL (1.0-4.8); LYMPH % 9 % (24-48); MEAN CORPUSCULAR HEMOGLOBIN 30 pg (25-35); MEAN CORPUSCULAR HGB CONC 34 g/dL (31-37); MEAN CORPUSCULAR VOLUME 88 fL (79-100); MONO % 11 % (0-9); NEUT % 79 % (31-73); PLATELET COUNT 262 x10^3/uL (140-400); RED BLOOD COUNT 3.91 x10^6/uL (4.30-5.70); RED CELL DISTRIBUTION WIDTH 13.4 % (11.5-14.5); WHITE BLOOD COUNT 10.1 x10^3/uL (4.0-11.0)
[2016-07-03 04:31] LABS: CALCIUM 8.8 mg/dL (8.5-10.1); CREATININE 0.9 mg/dL (0.7-1.3); GFR 83.9; POTASSIUM 3.7 mmol/L (3.5-5.1)
[2016-07-03 07:00] VITALS: BP 110/65
[2016-07-03] MEDS: TICAGRELOR 90 MG TABLET. PO SCH ×2 (08:31→20:53)
[2016-07-03] MEDS: LISINOPRIL 5 MG TABLET. PO SCH (08:31)
[2016-07-03] MEDS: ASPIRIN ENTERIC COATED 81 MG TABLET.DR. PO SCH (08:31)
[2016-07-03] MEDS: FUROSEMIDE 40 MG TABLET PO SCH (08:32)
[2016-07-03 11:00] VITALS: BP 109/59
[2016-07-03] MEDS ORDERED: LISI-338 PO (11:06)
[2016-07-03] MEDS ORDERED: TICA90TA PO (11:06)
[2016-07-03] MEDS ORDERED: ASPI81TA2 PO (11:06)
[2016-07-03] MEDS ORDERED: FURO-68 PO (11:06)
[2016-07-03] MEDS ORDERED: NITR0.4T6 SL (11:06)
--- NOTE | 2016-07-03 11:10 | PDOC3 ---
Discharge Summary Visit Information Date of Admission: Jun 29, 2016 Date of Discharge: Jul 03, 2016 Admitting Diagnosis Comment: 1. Inferior STEMI. Proximal RCA occlusion, s/p stenting with implantation of Xience 3.0 PAUL. LVEF 45% with inferior wall HK. 2. Transient bradycardia due to inferior STEMI. 3. ANDIE, possible Contrast induced nephropathy\ 4. Urinary retention Final Diagnosis Problems Medical Problems: (1) CAD (coronary artery disease) Status: Acute (2) STEMI (ST elevation myocardial infarction) Status: Acute Brief Hospital Course Allergies Allergies Coded Allergies Type Severity Reaction Last Updated Verified No Known Drug Allergies 06/29/16 No Vital Signs Vital Signs Date Time Temp Pulse Resp B/P Pulse Ox O2 Delivery O2 Flow Rate FiO2 07/03/16 08:31 117 110/65 07/03/16 08:20 Room Air 07/03/16 07:00 98.1 18 95 98.1 07/02/16 23:40 2.0 Lab Results Laboratory Tests Test 07/01/16 12:20 07/01/16 16:57 07/01/16 20:55 07/02/16 11:55 Glucose (Fingerstick) 124mg/dL (70-99) 128mg/dL (70-99) 114mg/dL (70-99) White Blood Count 10.6x10^3/uL (4.0-11.0) Red Blood Count 4.24x10^6/uL (4.30-5.70) Hemoglobin 12.8g/dL (13.0-17.5) Hematocrit 38.5% (39.0-53.0) Mean Corpuscular Volume 91fL (79-100) Mean Corpuscular Hemoglobin 30pg (25-35) Mean Corpuscular Hemoglobin Concent 33g/dL (31-37) Red Cell Distribution Width 13.9% (11.5-14.5) Platelet Count 238x10^3/uL (140-400) Neutrophils (%) (Auto) 85% (31-73) Lymphocytes (%) (Auto) 5% (24-48) Monocytes (%) (Auto) 9% (0-9) Eosinophils (%) (Auto) 0% (0-3) Basophils (%) (Auto) 0% (0-3) Neutrophils # (Auto) 9.1x10^3uL (1.8-7.7) Lymphocytes # (Auto) 0.6x10^3/uL (1.0-4.8) Monocytes # (Auto) 0.9x10^3/uL (0.0-1.1) Eosinophils # (Auto) 0.0x10^3/uL (0.0-0.7) Basophils # (Auto) 0.0x10^3/uL (0.0-0.2) Sodium Level 137mmol/L (136-145) Potassium Level 3.7mmol/L (3.5-5.1) Chloride Level 100mmol/L (98-107) Carbon Dioxide Level 27mmol/L (21-32) Anion Gap 10 (6-14) Blood Urea Nitrogen 24mg/dL (8-26) Creatinine 1.0mg/dL (0.7-1.3) Estimated GFR (Cockcroft-Gault) 74.3 BUN/Creatinine Ratio 24 (6-20) Glucose Level 118mg/dL (70-99) Calcium Level 9.3mg/dL (8.5-10.1) Total Bilirubin 1.0mg/dL (0.2-1.0) Aspartate Amino Transf (AST/SGOT) 116U/L (15-37) Alanine Aminotransferase (ALT/SGPT) 79U/L (16-63) Alkaline Phosphatase 92U/L (46-116) Total Protein 7.2g/dL (6.4-8.2) Albumin 2.7g/dL (3.4-5.0) Albumin/Globulin Ratio 0.6 (1.0-1.7) Test 07/03/16 03:15 White Blood Count 10.1x10^3/uL (4.0-11.0) Red Blood Count 3.91x10^6/uL (4.30-5.70) Hemoglobin 11.9g/dL (13.0-17.5) Hematocrit 34.5% (39.0-53.0) Mean Corpuscular Volume 88fL (79-100) Mean Corpuscular Hemoglobin 30pg (25-35) Mean Corpuscular Hemoglobin Concent 34g/dL (31-37) Red Cell Distribution Width 13.4% (11.5-14.5) Platelet Count 262x10^3/uL (140-400) Neutrophils (%) (Auto) 79% (31-73) Lymphocytes (%) (Auto) 9% (24-48) Monocytes (%) (Auto) 11% (0-9) Eosinophils (%) (Auto) 0% (0-3) Basophils (%) (Auto) 0% (0-3) Neutrophils # (Auto) 7.9x10^3uL (1.8-7.7) Lymphocytes # (Auto) 0.9x10^3/uL (1.0-4.8) Monocytes # (Auto) 1.1x10^3/uL (0.0-1.1) Eosinophils # (Auto) 0.0x10^3/uL (0.0-0.7) Basophils # (Auto) 0.0x10^3/uL (0.0-0.2) Sodium Level 139mmol/L (136-145) Potassium Level 3.7mmol/L (3.5-5.1) Chloride Level 102mmol/L (98-107) Carbon Dioxide Level 27mmol/L (21-32) Anion Gap 10 (6-14) Blood Urea Nitrogen 21mg/dL (8-26) Creatinine 0.9mg/dL (0.7-1.3) Estimated GFR (Cockcroft-Gault) 83.9 Glucose Level 115mg/dL (70-99) Calcium Level 8.8mg/dL (8.5-10.1) Laboratory Tests Test 07/02/16 11:55 07/03/16 03:15 White Blood Count 10.6x10^3/uL (4.0-11.0) 10.1x10^3/uL (4.0-11.0) Red Blood Count 4.24x10^6/uL (4.30-5.70) 3.91x10^6/uL (4.30-5.70) Hemoglobin 12.8g/dL (13.0-17.5) 11.9g/dL (13.0-17.5) Hematocrit 38.5% (39.0-53.0) 34.5% (39.0-53.0) Mean Corpuscular Volume 91fL (79-100) 88fL (79-100) Mean Corpuscular Hemoglobin 30pg (25-35) 30pg (25-35) Mean Corpuscular Hemoglobin Concent 33g/dL (31-37) 34g/dL (31-37) Red Cell Distribution Width 13.9% (11.5-14.5) 13.4% (11.5-14.5) Platelet Count 238x10^3/uL (140-400) 262x10^3/uL (140-400) Neutrophils (%) (Auto) 85% (31-73) 79% (31-73) Lymphocytes (%) (Auto) 5% (24-48) 9% (24-48) Monocytes (%) (Auto) 9% (0-9) 11% (0-9) Eosinophils (%) (Auto) 0% (0-3) 0% (0-3) Basophils (%) (Auto) 0% (0-3) 0% (0-3) Neutrophils # (Auto) 9.1x10^3uL (1.8-7.7) 7.9x10^3uL (1.8-7.7) Lymphocytes # (Auto) 0.6x10^3/uL (1.0-4.8) 0.9x10^3/uL (1.0-4.8) Monocytes # (Auto) 0.9x10^3/uL (0.0-1.1) 1.1x10^3/uL (0.0-1.1) Eosinophils # (Auto) 0.0x10^3/uL (0.0-0.7) 0.0x10^3/uL (0.0-0.7) Basophils # (Auto) 0.0x10^3/uL (0.0-0.2) 0.0x10^3/uL (0.0-0.2) Sodium Level 137mmol/L (136-145) 139mmol/L (136-145) Potassium Level 3.7mmol/L (3.5-5.1) 3.7mmol/L (3.5-5.1) Chloride Level 100mmol/L (98-107) 102mmol/L (98-107) Carbon Dioxide Level 27mmol/L (21-32) 27mmol/L (21-32) Anion Gap 10 (6-14) 10 (6-14) Blood Urea Nitrogen 24mg/dL (8-26) 21mg/dL (8-26) Creatinine 1.0mg/dL (0.7-1.3) 0.9mg/dL (0.7-1.3) Estimated GFR (Cockcroft-Gault) 74.3 83.9 BUN/Creatinine Ratio 24 (6-20) Glucose Level 118mg/dL (70-99) 115mg/dL (70-99) Calcium Level 9.3mg/dL (8.5-10.1) 8.8mg/dL (8.5-10.1) Total Bilirubin 1.0mg/dL (0.2-1.0) Aspartate Amino Transf (AST/SGOT) 116U/L (15-37) Alanine Aminotransferase (ALT/SGPT) 79U/L (16-63) Alkaline Phosphatase 92U/L (46-116) Total Protein 7.2g/dL (6.4-8.2) Albumin 2.7g/dL (3.4-5.0) Albumin/Globulin Ratio 0.6 (1.0-1.7) Brief Hospital Course Mr. Jorge is a 70 old male admitted for CP, found to have inferior NSTEMI, got stented. NEw meds started including lisinopril 5, lasix 40, Brilinta 9o BID and ASA 81. Pt unfortunetaly is no read./no write, will try to arrange for HH,. Pt seen and examined DW RN and family at bedside COnsults: cards Proc; [facility] Discharge Information Condition at Discharge: Improved, Stable Disposition/Orders: D/C to Home w/ HH Miscellaneous Medications Info (No Known Medications Prior To Admisstion) 1 EACH MC (Reported) WESLEY KLEIN MD Jul 03, 2016 11:10
[2016-07-03] MEDS ORDERED: METOPROLOL TART IMMED RELEASE 25 MG TABLET PO ONE (11:30)
--- NOTE | 2016-07-03 12:03 | PDOC ---
LIN DELA CRUZ VALUE STREAM MANAGER 07/03/16 1202: CARDIO Progress Notes Date and Time Date of Service 07/03/16 Time of Evaluation 1045 Subjective Subjective: No Chest Pain, No shortness of breath, No Palpitations, No Dizziness, Other Comments: doing well; no acute events overnight Vitals Vitals Vital Signs Date Time Temp Pulse Resp B/P Pulse Ox O2 Delivery O2 Flow Rate FiO2 07/03/16 11:48 112 112/61 07/03/16 11:00 98.4 18 94 Room Air 98.4 07/02/16 23:40 2.0 Weight Weight [ ] Input and Output Intake and Output Intake and Output 07/03/16 07:00 Output Total 1100 ml Balance -1100 ml Output Urine Total 1100 ml Laboratory Labs Laboratory Tests Test 07/02/16 11:55 07/03/16 03:15 White Blood Count 10.6x10^3/uL (4.0-11.0) 10.1x10^3/uL (4.0-11.0) Red Blood Count 4.24x10^6/uL (4.30-5.70) 3.91x10^6/uL (4.30-5.70) Hemoglobin 12.8g/dL (13.0-17.5) 11.9g/dL (13.0-17.5) Hematocrit 38.5% (39.0-53.0) 34.5% (39.0-53.0) Mean Corpuscular Volume 91fL (79-100) 88fL (79-100) Mean Corpuscular Hemoglobin 30pg (25-35) 30pg (25-35) Mean Corpuscular Hemoglobin Concent 33g/dL (31-37) 34g/dL (31-37) Red Cell Distribution Width 13.9% (11.5-14.5) 13.4% (11.5-14.5) Platelet Count 238x10^3/uL (140-400) 262x10^3/uL (140-400) Neutrophils (%) (Auto) 85% (31-73) 79% (31-73) Lymphocytes (%) (Auto) 5% (24-48) 9% (24-48) Monocytes (%) (Auto) 9% (0-9) 11% (0-9) Eosinophils (%) (Auto) 0% (0-3) 0% (0-3) Basophils (%) (Auto) 0% (0-3) 0% (0-3) Neutrophils # (Auto) 9.1x10^3uL (1.8-7.7) 7.9x10^3uL (1.8-7.7) Lymphocytes # (Auto) 0.6x10^3/uL (1.0-4.8) 0.9x10^3/uL (1.0-4.8) Monocytes # (Auto) 0.9x10^3/uL (0.0-1.1) 1.1x10^3/uL (0.0-1.1) Eosinophils # (Auto) 0.0x10^3/uL (0.0-0.7) 0.0x10^3/uL (0.0-0.7) Basophils # (Auto) 0.0x10^3/uL (0.0-0.2) 0.0x10^3/uL (0.0-0.2) Sodium Level 137mmol/L (136-145) 139mmol/L (136-145) Potassium Level 3.7mmol/L (3.5-5.1) 3.7mmol/L (3.5-5.1) Chloride Level 100mmol/L (98-107) 102mmol/L (98-107) Carbon Dioxide Level 27mmol/L (21-32) 27mmol/L (21-32) Anion Gap 10 (6-14) 10 (6-14) Blood Urea Nitrogen 24mg/dL (8-26) 21mg/dL (8-26) Creatinine 1.0mg/dL (0.7-1.3) 0.9mg/dL (0.7-1.3) Estimated GFR (Cockcroft-Gault) 74.3 83.9 BUN/Creatinine Ratio 24 (6-20) Glucose Level 118mg/dL (70-99) 115mg/dL (70-99) Calcium Level 9.3mg/dL (8.5-10.1) 8.8mg/dL (8.5-10.1) Total Bilirubin 1.0mg/dL (0.2-1.0) Aspartate Amino Transf (AST/SGOT) 116U/L (15-37) Alanine Aminotransferase (ALT/SGPT) 79U/L (16-63) Alkaline Phosphatase 92U/L (46-116) Total Protein 7.2g/dL (6.4-8.2) Albumin 2.7g/dL (3.4-5.0) Albumin/Globulin Ratio 0.6 (1.0-1.7) Physical Exam HEENT: Neck Supple W Full Motion Chest: Symmetric, Other LUNGS: Clear to Auscultation Heart: S1S2, other (tele: ST) Abdomen: Soft N/T Extremities: 2+ Dorsalis Pedis, No Edema Neurology: alert, oriented, follow commands Assessment Assessment 1. STEMI; s/p PCI/PAUL to RCA 2. Transient bradycardia; resolved. 3. Acute systolic heart failure with ICM; LVEF 40-45% 4. ANDIE Recommendations Add low-dose BB Kapoor replaced due to retention- outpatient f/u with urology Patient expressed limited reading ability; discussed importance of medication compliance. Thinks he should be able to read medication bottles. Lives alone- reports little help available. Does have daughter who will be picking him up- will need to need to determine if she is available to assist. D/ w RN If not- ? need for HH. DAPT with ASA and Brilinta- discount card provided Repeat echo May discharge later this evening if doing well. F/u in our office with Dr. Campbell as scheduled. DO CAMPBELL MD 07/03/16 1435: CARDIO Progress Notes Plan Plan Patient seen and examined. Agree with above nurse practitioner note. No acute events overnight. Reports that he is feeling better today. Medications reviewed. He is still a bit tachycardic but given his recent vagal response would defer any aggressive beta-blockade. He will be started on low-dose metoprolol. Low-dose CHARI inhibitor therapy as tolerated. Will follow up next week for a blood pressure check in the office and then in about 4 weeks for a routine hospital follow-up visit. Discussed with daughter at bedside. LIN DELA CRUZ APRN Jul 03, 2016 12:02 DO CAMPBELL MD Jul 03, 2016 14:35
[2016-07-03] MEDS: METOPROLOL TART IMMED RELEASE 25 MG TABLET PO SCH ×4 (12:30→20:56)
[2016-07-03 15:00] VITALS: BP 93/56
--- NOTE | 2016-07-03 16:40 | CARD ---
APPROVED REPORT EXAM: LIMITED Two-dimensional and M-mode echocardiogram. Other Information Quality : Average Rhythm : NSR INDICATION LV Function:Systolic 2D DIMENSIONS RVDd2.3 (2.9-3.5cm)Left Atrium(2D)2.4 (1.6-4.0cm) IVSd0.9 (0.7-1.1cm)Aortic Root(2D)2.8 (2.0-3.7cm) LVDd4.7 (3.9-5.9cm)PWd0.9 (0.7-1.1cm) LVDs3.8 (2.5-4.0cm)FS (%) 20.2 % SV43.1 mlLVEF(%)41.4 (>50%) LEFT VENTRICLE The left ventricle is normal size. There is normal left ventricular wall thickness. Left ventricle sy stolic function is mildly impaired. The Ejection Fraction is 40-45%. Basal to distal inferior/lateral wall moderate to severe hypokinesis consistent with large prior inferolateral infarct. RIGHT VENTRICLE The right ventricle is normal size. The right ventricular systolic function is normal. ATRIA The left atrium size is normal. The right atrium size is normal. GREAT VESSELS The aortic root is normal in size. PERICARDIAL EFFUSION There is a trace circumferential pericardial effusion. Critical Notification Critical Value: No <Conclusion> Left ventricle systolic function is mildly impaired. The Ejection Fraction is 40-45%. Basal to distal inferior/lateral wall moderate to severe hypokinesis consistent with large prior infe rolateral infarct. Limited echo for EF only.
[2016-07-03 19:00] VITALS: BP 105/56
[2016-07-03] MEDS: ATORVASTATIN CALCIUM 40 MG TABLET. PO SCH (20:53)
[2016-07-03] MEDS: TAMSULOSIN 0.4 MG CAP.ER.24H. PO SCH (20:54)
[2016-07-03 23:40] VITALS: BP 116/67
[2016-07-04] VITALS (7 sets, daily range): BP systolic 92–118; BP diastolic 55–72
[2016-07-04] MEDS: ASPIRIN ENTERIC COATED 81 MG TABLET.DR. PO SCH (08:24)
[2016-07-04] MEDS: TICAGRELOR 90 MG TABLET. PO SCH ×2 (08:25→20:46)
[2016-07-04] MEDS: LISINOPRIL 5 MG TABLET. PO SCH (08:25)
[2016-07-04] MEDS: FUROSEMIDE 40 MG TABLET PO SCH (08:25)
[2016-07-04] MEDS: METOPROLOL TART IMMED RELEASE 25 MG TABLET PO SCH ×2 (08:27→20:46)
[2016-07-04] MEDS: LOPERAMIDE 2 MG CAPSULE PO PRN ×3 (09:57→17:56)
[2016-07-04] MEDS ORDERED: IV NORMAL SALINE 250ML 250 ML IV ONE (10:15)
--- NOTE | 2016-07-04 10:54 | PDOC ---
PROGRESS NOTES Chief Complaint Chief Complaint STEMI, inferior wall s/p stents Transient bradycardia, nOW tachycardia likely sec to below Diarrhea (07/03/16) ANDIE, resolved Urinary retention, PSA neg, likely BPH - now indwelling valdez Hyponatremia resolved History of Present Illness History of Present Illness Loss stools > 6-7 times last night (started 07/03) Yellowish color, no blood TAchycardic 130s BP ok - (Got metoprolol for the tachycardia) COncentrated urine NO fevers NO abd cramps PLAN: Start IVF maintainance 100cc after the 250cc bolus Immodium Send for stool culture and c diff Dc immodium if c diff positive Contact isolation for now Send for rpt UA Dw pt and RN at bedside Hold DC Vitals Vitals Vital Signs Date Time Temp Pulse Resp B/P Pulse Ox O2 Delivery O2 Flow Rate FiO2 07/04/16 08:27 111 109/61 07/04/16 07:58 98.4 18 93 Room Air 98.4 Physical Exam General: Alert, Oriented X3, Cooperative, No acute distress Heart: Regular rate, No murmurs Lungs: Clear Abdomen: Normal bowel sounds Extremities: No clubbing, No cyanosis, No edema Skin: No rashes, No breakdown, No significant lesion Labs LABS Laboratory Tests Test 07/03/16 12:01 Glucose (Fingerstick) 116mg/dL (70-99) Review of Systems Review of Systems diarrhea, no fevers, no abd pain Assessment and Plan Assessmemt and Plan Problems Medical Problems: (1) CAD (coronary artery disease) Status: Acute (2) STEMI (ST elevation myocardial infarction) Status: Acute Problems: Comment Review of Relevant I have reviewed the following items bryant (where applicable) has been applied. Labs Laboratory Tests Test 07/02/16 11:35 07/02/16 11:55 07/02/16 21:04 07/03/16 03:15 Glucose (Fingerstick) 118mg/dL (70-99) 122mg/dL (70-99) White Blood Count 10.6x10^3/uL (4.0-11.0) 10.1x10^3/uL (4.0-11.0) Red Blood Count 4.24x10^6/uL (4.30-5.70) 3.91x10^6/uL (4.30-5.70) Hemoglobin 12.8g/dL (13.0-17.5) 11.9g/dL (13.0-17.5) Hematocrit 38.5% (39.0-53.0) 34.5% (39.0-53.0) Mean Corpuscular Volume 91fL (79-100) 88fL (79-100) Mean Corpuscular Hemoglobin 30pg (25-35) 30pg (25-35) Mean Corpuscular Hemoglobin Concent 33g/dL (31-37) 34g/dL (31-37) Red Cell Distribution Width 13.9% (11.5-14.5) 13.4% (11.5-14.5) Platelet Count 238x10^3/uL (140-400) 262x10^3/uL (140-400) Neutrophils (%) (Auto) 85% (31-73) 79% (31-73) Lymphocytes (%) (Auto) 5% (24-48) 9% (24-48) Monocytes (%) (Auto) 9% (0-9) 11% (0-9) Eosinophils (%) (Auto) 0% (0-3) 0% (0-3) Basophils (%) (Auto) 0% (0-3) 0% (0-3) Neutrophils # (Auto) 9.1x10^3uL (1.8-7.7) 7.9x10^3uL (1.8-7.7) Lymphocytes # (Auto) 0.6x10^3/uL (1.0-4.8) 0.9x10^3/uL (1.0-4.8) Monocytes # (Auto) 0.9x10^3/uL (0.0-1.1) 1.1x10^3/uL (0.0-1.1) Eosinophils # (Auto) 0.0x10^3/uL (0.0-0.7) 0.0x10^3/uL (0.0-0.7) Basophils # (Auto) 0.0x10^3/uL (0.0-0.2) 0.0x10^3/uL (0.0-0.2) Sodium Level 137mmol/L (136-145) 139mmol/L (136-145) Potassium Level 3.7mmol/L (3.5-5.1) 3.7mmol/L (3.5-5.1) Chloride Level 100mmol/L (98-107) 102mmol/L (98-107) Carbon Dioxide Level 27mmol/L (21-32) 27mmol/L (21-32) Anion Gap 10 (6-14) 10 (6-14) Blood Urea Nitrogen 24mg/dL (8-26) 21mg/dL (8-26) Creatinine 1.0mg/dL (0.7-1.3) 0.9mg/dL (0.7-1.3) Estimated GFR (Cockcroft-Gault) 74.3 83.9 BUN/Creatinine Ratio 24 (6-20) Glucose Level 118mg/dL (70-99) 115mg/dL (70-99) Calcium Level 9.3mg/dL (8.5-10.1) 8.8mg/dL (8.5-10.1) Total Bilirubin 1.0mg/dL (0.2-1.0) Aspartate Amino Transf (AST/SGOT) 116U/L (15-37) Alanine Aminotransferase (ALT/SGPT) 79U/L (16-63) Alkaline Phosphatase 92U/L (46-116) Total Protein 7.2g/dL (6.4-8.2) Albumin 2.7g/dL (3.4-5.0) Albumin/Globulin Ratio 0.6 (1.0-1.7) Test 07/03/16 07:23 07/03/16 12:01 Glucose (Fingerstick) 117mg/dL (70-99) 116mg/dL (70-99) Laboratory Tests Test 07/03/16 12:01 Glucose (Fingerstick) 116mg/dL (70-99) Medications Current Medications Aspirin (Alexys Aspirin) 325 mg STK-MED ONCE .ROUTE ; Start 06/29/16 at 12:01; Stop 06/29/16 at 12:02; Status DC Heparin Sodium (Porcine) 10,000 unit STK-MED ONCE .ROUTE ; Start 06/29/16 at 12: 01; Stop 06/29/16 at 12:02; Status DC Ondansetron HCl (Zofran) 4 mg STK-MED ONCE .ROUTE ; Start 06/29/16 at 12:17; Stop 06/29/16 at 12:18; Status DC Aspirin (Children'S Aspirin) 324 mg 1X ONCE PO Last administered on 06/29/16 12:05; Start 06/29/16 at 12:30; Stop 06/29/16 at 12:36; Status DC Heparin Sodium (Porcine) 3,000 unit 1X ONCE IV Last administered on 06/29/16 12:05; Start 06/29/16 at 12:30; Stop 06/29/16 at 12:36; Status DC Morphine Sulfate 2 mg PRN Q15MIN PRN IV/SQ PAIN GREATER THAN 3/10 Last administered on 06/29/16 12:25; Start 06/29/16 at 12:30; Stop 06/30/16 at 12:29 ; Status DC Ondansetron HCl (Zofran) 4 mg 1X ONCE IV Last administered on 06/29/16 12:24 ; Start 06/29/16 at 12:30; Stop 06/29/16 at 12:36; Status DC Morphine Sulfate 2 mg 2 mg STK-MED ONCE .ROUTE ; Start 06/29/16 at 12:18; Stop 06/29/16 at 12:19; Status DC Heparin Sodium/ Sodium Chloride 1,000 ml @ As Directed STK-MED ONCE .ROUTE ; Start 06/29/16 at 12:23; Stop 06/29/16 at 12:24; Status DC Lidocaine HCl 20 ml STK-MED ONCE .ROUTE ; Start 06/29/16 at 12:24; Stop at 12:25; Status DC Iodixanol (Visipaque 320) 100 ml STK-MED ONCE .ROUTE ; Start 06/29/16 at 12:24; Stop 06/29/16 at 12:25; Status DC Iodixanol (Visipaque 320) 100 ml STK-MED ONCE .ROUTE ; Start 06/29/16 at 12:24; Stop 06/29/16 at 12:25; Status DC Nitroglycerin (Nitroglycerin) 200 mcg STK-MED ONCE .ROUTE ; Start 06/29/16 at 12 :29; Stop 06/29/16 at 12:30; Status DC Verapamil HCl (Verapamil) 5 mg STK-MED ONCE .ROUTE ; Start 06/29/16 at 12:29; Stop 06/29/16 at 12:30; Status DC Heparin Sodium (Porcine) 10,000 unit STK-MED ONCE .ROUTE ; Start 06/29/16 at 12: 29; Stop 06/29/16 at 12:30; Status DC Fentanyl Citrate (Fentanyl 2ml Vial) 100 mcg STK-MED ONCE .ROUTE ; Start at 12:29; Stop 06/29/16 at 12:30; Status DC Midazolam HCl 2 mg 2 mg STK-MED ONCE .ROUTE ; Start 06/29/16 at 12:30; Stop at 12:31; Status DC Tirofiban/Sodium Chloride (Aggrastat 12.5 Mg/250 ml Premix) 250 ml @ As Directed STK-MED ONCE IV ; Start 06/29/16 at 12:45; Stop 06/29/16 at 12:46; Status DC Nitroglycerin (Nitroglycerin) 200 mcg 1X ONCE IART Last administered on 14:06; Start 06/29/16 at 13:00; Stop 06/29/16 at 13:03; Status DC Verapamil HCl (Verapamil) 2.5 mg 1X ONCE IART Last administered on 06/29/16 14:09; Start 06/29/16 at 13:00; Stop 06/29/16 at 13:03; Status DC Heparin Sodium (Porcine) 2,500 unit 1X ONCE IART Last administered on 14:13; Start 06/29/16 at 13:00; Stop 06/29/16 at 13:03; Status DC Heparin Sodium/ Sodium Chloride 1,000 unit 1X ONCE IART Last administered on 14:11; Start 06/29/16 at 13:00; Stop 06/29/16 at 13:03; Status DC Midazolam HCl (Versed) 1 mg 1X ONCE IV Last administered on 06/29/16 14:10; Start 06/29/16 at 12:45; Stop 06/29/16 at 13:03; Status DC Fentanyl Citrate (Fentanyl 2ml Vial) 50 mcg 1X ONCE IV Last administered on 14:10; Start 06/29/16 at 12:45; Stop 06/29/16 at 13:03; Status DC Iodixanol (Visipaque 320) 100 ml 1X ONCE IART Last administered on 06/29/16 14:09; Start 06/29/16 at 13:00; Stop 06/29/16 at 13:03; Status DC Lidocaine HCl 20 ml 20 ml 1X ONCE IJ Last administered on 06/29/16 14:11; Start 06/29/16 at 13:00; Stop 06/29/16 at 13:03; Status DC Tirofiban/Sodium Chloride 250 ml @ 0 mls/hr 1X ONCE IV ; Start 06/29/16 at 12: 48; Stop 06/29/16 at 12:49; Status Cancel Tirofiban/Sodium Chloride (Aggrastat 12.5 Mg/250 ml Premix) 250 ml @ 0 mls/hr CONT PRN IV PER PROTOCOL Last administered on 06/29/16 14:08; Start 06/29/16 at 13:00; Stop 06/30/16 at 06:59; Status DC Info (Do NOT chart on this entry -- for MONITORING) 1 each PRN DAILY PRN MC SEE COMMENTS; Start 06/29/16 at 13:15; Stop 07/01/16 at 13:14; Status DC Phenylephrine HCl 1 mg 1 mg STK-MED ONCE IV ; Start 06/29/16 at 13:12; Stop at 13:13; Status DC Dopamine HCl/ Dextrose 250 ml @ As Directed STK-MED ONCE IV ; Start 06/29/16 at 13:16; Stop 06/29/16 at 13:17; Status DC Cangrelor (Kengreal) 50 mg STK-MED ONCE IV ; Start 06/29/16 at 13:36; Stop 06/29 at 13:37; Status DC Heparin Sodium (Porcine) 1,000 unit 1X ONCE IV Last administered on 06/29/16 14:14; Start 06/29/16 at 13:19; Stop 06/29/16 at 13:57; Status DC Phenylephrine HCl 0.1 mg 0.1 mg 1X ONCE IV Last administered on 06/29/16 14: 08; Start 06/29/16 at 13:15; Stop 06/29/16 at 13:57; Status DC Cangrelor/Sodium Chloride (Kengreal/Iv Sodium Chloride 0.9% 250ml) 250 ml @ 0 mls/hr CONT PRN PRN IV PER PROTOCOL Last administered on 06/29/16 14:07; Start 06/29/16 at 13:45; Stop 06/29/16 at 15:44; Status DC Atropine Sulfate 0.5 mg 1X ONCE IV Last administered on 06/29/16 14:08; Start 06/29/16 at 13:17; Stop 06/29/16 at 13:57; Status DC Sodium Chloride 3 ml 3 ml QSHIFT PRN IV AFTER MEDS AND BLOOD DRAWS; Start 06/29 at 14:00 Tirofiban/Sodium Chloride (Aggrastat 12.5 Mg/250 ml Premix) 250 ml @ 0 mls/hr CONT PRN IV PER PROTOCOL; Start 06/29/16 at 14:00; Stop 06/30/16 at 07:59; Status DC Aspirin (Ecotrin) 81 mg DAILYWBKFT PO Last administered on 07/04/16 08:24; Start 06/30/16 at 08:00 Ticagrelor (Brilinta) 90 mg BID PO Last administered on 07/04/16 08:25; Start 06/30/16 at 09:00 Metoprolol Tartrate (Lopressor) 25 mg BID PO Last administered on 06/30/16 08: 43; Start 06/29/16 at 21:00; Stop 06/30/16 at 17:40; Status DC Lisinopril (Prinivil) 5 mg DAILY PO Last administered on 06/30/16 08:44; Start 06/30/16 at 09:00; Stop 06/30/16 at 17:41; Status DC Atorvastatin Calcium (Lipitor) 40 mg QHS PO Last administered on 07/03/16 20: 53; Start 06/29/16 at 21:00 Acetaminophen (Tylenol) 650 mg PRN Q6HRS PRN PO MILD PAIN / TEMP; Start at 14:00 Fentanyl Citrate (Fentanyl 2ml Vial) 50 mcg PRN Q1HR PRN IV MODERATE OR SEVERE PAIN Last administered on 07/01/16 16:53; Start 06/29/16 at 14:00 Cyclobenzaprine HCl (Flexeril) 10 mg PRN TID PRN PO MUSCLE SPASMS; Start at 14:00 Ondansetron HCl (Zofran) 4 mg PRN Q6HRS PRN IV NAUSEA/VOMITING; Start 06/29/16 at 14:00 Nitroglycerin 0.4 mg 0.4 mg PRN Q5MIN PRN SL CHEST PAIN Last administered on 02:08; Start 06/29/16 at 14:00 Amiodarone HCl/ Dextrose (Cordarone) 103 ml @ 10 mls/min 1X PRN PRN IV FOR VENTRICULAR TACHYCARDIA; Start 06/29/16 at 14:00 Lidocaine HCl 100 mg 1X PRN PRN IV FOR VENTRICULAR TACHYCARDIA; Start 06/29/16 at 14:00 Atropine Sulfate 0.5 mg PRN 1X PRN IV BRADYCARDIA Last administered on 11:16; Start 06/29/16 at 14:00 Oxycodone/ Acetaminophen (Percocet 5/325) 1 tab PRN Q4HRS PRN PO MODERATE - SEVERE PAIN; Start 06/29/16 at 14:00 Morphine Sulfate 4 mg PRN Q2HR PRN IV PAIN Last administered on 06/30/16 10:28 ; Start 06/29/16 at 14:45 Ticagrelor (Brilinta) 180 mg 1X STAT PO Last administered on 06/29/16 16:40; Start 06/29/16 at 16:30; Stop 06/29/16 at 16:33; Status DC Insulin Aspart (Novolog) 0-9 UNITS TIDWMEALS SQ Last administered on 06/30/16 11:55; Start 06/30/16 at 08:00; Stop 07/02/16 at 17:33; Status DC Dextrose 12.5 gm 12.5 gm PRN Q15MIN PRN IV SEE COMMENTS; Start 06/29/16 at 18: 15 Sodium Chloride 1,000 ml @ 100 mls/hr Q10H IV Last administered on 06/30/16 08:46; Start 06/30/16 at 08:15; Stop 06/30/16 at 17:40; Status DC Dopamine HCl/ Dextrose 250 ml @ As Directed STK-MED ONCE IV ; Start 06/30/16 at 11:04; Stop 06/30/16 at 11:05; Status DC Norepinephrine Bitartrate/Sodium Chloride (Levophed Vial/ Iv Sodium Chloride 0.9 % 250ml) 258 ml @ 0 mls/hr CONT PRN IV SEE I/O RECORD Last administered on 06/30 11:35; Start 06/30/16 at 11:30; Stop 07/02/16 at 10:09; Status DC Furosemide (Lasix) 20 mg 1X ONCE IVP Last administered on 06/30/16 13:42; Start 06/30/16 at 13:45; Stop 06/30/16 at 13:46; Status DC Furosemide (Lasix) 40 mg 1X ONCE IVP Last administered on 06/30/16 17:22; Start 06/30/16 at 17:30; Stop 06/30/16 at 17:31; Status DC Tamsulosin HCl (Flomax) 0.4 mg QHS PO Last administered on 07/03/16 20:54; Start 07/01/16 at 21:00 Dopamine HCl/ Dextrose 400 mg STK-MED ONCE IV ; Start 06/30/16 at 11:00; Stop at 09:06; Status DC Metoprolol Tartrate (Lopressor) 12.5 mg BID PO Last administered on 07/01/16 13:28; Start 07/01/16 at 12:00; Stop 07/01/16 at 15:35; Status DC Diphenhydramine HCl (Benadryl) 25 mg PRN Q6HRS PRN PO ITCHING; Start 07/01/16 at 15:45 Furosemide (Lasix) 40 mg DAILY PO Last administered on 07/04/16 08:25; Start 07/02/16 at 11:15 Lisinopril (Prinivil) 5 mg DAILY PO Last administered on 07/04/16 08:25; Start 07/02/16 at 11:30 Lidocaine HCl (Glydo (Lidocaine) Jelly) 1 capri 1X ONCE MM Last administered on 07/02/16 12:54; Start 07/02/16 at 12:30; Stop 07/02/16 at 12:35; Status DC Metoprolol Tartrate (Lopressor) 1.25 mg ONCE ONCE IVP Last administered on 18:12; Start 07/02/16 at 17:30; Stop 07/02/16 at 17:31; Status DC Metoprolol Tartrate (Lopressor) 25 mg 1X ONCE PO Last administered on 11:48; Start 07/03/16 at 11:30; Stop 07/03/16 at 11:31; Status DC Metoprolol Tartrate (Lopressor) 12.5 mg BID PO Last administered on 07/03/16 20:54; Start 07/03/16 at 12:30; Stop 07/04/16 at 08:10; Status DC Metoprolol Tartrate (Lopressor) 25 mg BID PO Last administered on 07/04/16 08: 27; Start 07/03/16 at 14:00 Loperamide HCl 2 mg 2 mg PRN Q15MIN PRN PO DIARRHEA Last administered on 09:57; Start 07/04/16 at 09:15 Sodium Chloride (Iv Sodium Chloride 0.9% 250ml) 250 ml @ 250 mls/hr 1X ONCE IV Last administered on 07/04/16 10:21; Start 07/04/16 at 10:15; Stop at 11:14 Active Scripts Active NITROGLYCERIN SubLingual (Nitroglycerin) 0.4 Mg Tab.subl 1 Tab SL UD Brilinta (Ticagrelor) 90 Mg Tablet 90 Mg PO BID Aspirin 81 Mg Tab.chew 1 Tab PO DAILY Lisinopril 5 Mg Tablet 1 Tab PO DAILY Lasix (Furosemide) 40 Mg Tablet 1 Tab PO DAILY Reported No Known Medications Prior To Admisstion (Info) Each 1 Each Vitals/I & O Vital Sign - Last 24 Hours 07/03/16 07/03/16 07/03/16 07/03/16 11:00 11:48 15:00 19:00 Temp 98.4 98.0 98.1 98.4 98.0 98.1 Pulse 112 112 108 115 Resp 18 18 16 B/P 109/59 112/61 93/56 105/56 Pulse Ox 94 94 96 O2 Delivery Room Air Room Air Room Air 07/03/16 07/03/16 07/03/16 07/04/16 20:00 20:54 23:40 03:40 Temp 98.7 98.3 98.7 98.3 Pulse 115 110 111 Resp 18 18 B/P 105/56 116/67 105/66 Pulse Ox 96 94 O2 Delivery Room Air Room Air Room Air 07/04/16 07/04/16 07/04/16 07:58 08:25 08:27 Temp 98.4 98.4 Pulse 111 111 111 Resp 18 B/P 109/61 109/61 109/61 Pulse Ox 93 O2 Delivery Room Air Intake and Output 07/03/16 07/03/16 07/04/16 15:00 23:00 07:00 Intake Total 650 ml Output Total 900 ml 750 ml 650 ml Balance -900 ml -100 ml -650 ml WESLEY KLEIN MD Jul 04, 2016 10:53
[2016-07-04] MEDS: IV NORMAL SALINE 1000ML BAG 1,000 ML IV SCH ×2 (11:00→23:40)
[2016-07-04 11:38] LABS: BILIRUBIN,URINE NEGATIVE (NEG); GLUCOSE,URINE NEGATIVE (NEG); NITRITE,URINE NEGATIVE (NEG); PH,URINE 5.5; PROTEIN,URINE NEGATIVE (NEG-TRACE); UROBILINOGEN,URINE 0.2 mg/dL (0.2 mg/dL)
--- NOTE | 2016-07-04 11:46 | PDOC ---
LIN DELA CRUZ TRINH 07/04/16 1146: CARDIO Progress Notes Date and Time Date of Service 07/04/16 Time of Evaluation 1030 Subjective Subjective: No Chest Pain, No shortness of breath, No Palpitations, No Dizziness, Other (having frequent diarrhea; began yesterday evening. continued through night and into this morning) Vitals Vitals Vital Signs Date Time Temp Pulse Resp B/P Pulse Ox O2 Delivery O2 Flow Rate FiO2 07/04/16 08:30 Room Air 07/04/16 08:27 111 109/61 07/04/16 07:58 98.4 18 93 98.4 Weight Weight [ ] Input and Output Intake and Output Intake and Output 07/04/16 07:00 Intake Total 650 ml Output Total 2300 ml Balance -1650 ml Intake Oral 650 ml Output Urine Total 2300 ml # Bowel Movements 3 Laboratory Labs Laboratory Tests Test 07/03/16 12:01 Glucose (Fingerstick) 116mg/dL (70-99) Physical Exam HEENT: Neck Supple W Full Motion Chest: Symmetric, Other LUNGS: Clear to Auscultation Heart: S1S2, other (tele: ST) Abdomen: Soft N/T Extremities: 2+ Dorsalis Pedis, No Edema Neurology: alert, oriented, follow commands Assessment Assessment 1. STEMI; s/p PCI/PAUL to RCA 2. Transient bradycardia; resolved. 3. Acute systolic heart failure with ICM; LVEF 40-45% 4. Diarrhea Recommendations Frequent diarrhea overnight; ongoing this morning. Urine concentrated Stool sent for c-diff Remains tachycardic despite BB therapy. Hold lasix for now; will give gentle hydration supportive care DO EDWARDS MD 07/04/16 3682: CARDIO Progress Notes Plan Plan Patient seen and examined. Agree with the above-listed practitioner noted. Patient has had some diarrhea overnight. He is mildly tachycardic. Denies CP Repeat echo with inferior wall infarct but EF stable at 45% Normal cardiac exam except for tachycardia. Labs and medications reviewed. Awaiting C. difficile serology. Supportive care from a cardiac standpoint, I agree with gentle hydration. Discharge when okay with primary service. LANIE,EMILY TRINH Jul 04, 2016 11:46 DO EDWARDS MD Jul 04, 2016 18:52
[2016-07-04 11:55] LABS: BACTERIA,URINE FEW /HPF (0-FEW); RBC,URINE >40 /HPF (0-2); SQUAMOUS EPITHELIAL CELL,UR FEW /LPF
[2016-07-04] MEDS: TAMSULOSIN 0.4 MG CAP.ER.24H. PO SCH (20:45)
[2016-07-04] MEDS: ATORVASTATIN CALCIUM 40 MG TABLET. PO SCH (20:46)
[2016-07-05 03:20] VITALS: BP 107/60
[2016-07-05 04:13] LABS: CALCIUM 7.8 mg/dL (8.5-10.1); CREATININE 0.8 mg/dL (0.7-1.3); GFR 96.1; MAGNESIUM 1.9 mg/dL (1.8-2.4); POTASSIUM 3.1 mmol/L (3.5-5.1)
[2016-07-05 07:17] VITALS: BP 114/65
--- NOTE | 2016-07-05 08:43 | PDOC ---
KEIRY SWAIN SUPERVISOR SHOP 07/05/16 0843: CARDIO Progress Notes Date and Time Date of Service 07/05/2016 Time of Evaluation 0840 Subjective Subjective: No Chest Pain, No shortness of breath, No Palpitations, No Dizziness, Other (eating breakfast denies any discomfort) Vitals Vitals Vital Signs Date Time Temp Pulse Resp B/P Pulse Ox O2 Delivery O2 Flow Rate FiO2 07/05/16 07:17 98.0 83 18 114/65 96 Room Air 98.0 07/04/16 11:00 2.0 Weight Weight [ ] Input and Output Intake and Output Intake and Output 07/05/16 07:00 Intake Total 1675 ml Output Total 1000 ml Balance 675 ml Intake Oral 1425 ml IV Total 250 ml Output Urine Total 1000 ml Laboratory Labs Laboratory Tests Test 07/04/16 11:15 07/05/16 03:40 Urine Collection Type U cath Urine Color Yellow Urine Clarity Clear Urine pH 5.5 Urine Specific Stephenson 1.015 Urine Protein Negativemg/dL (NEG-TRACE) Urine Glucose (UA) Negativemg/dL (NEG) Urine Ketones (Stick) Negativemg/dL (NEG) Urine Blood Large (NEG) Urine Nitrite Negative (NEG) Urine Bilirubin Negative (NEG) Urine Urobilinogen Dipstick 0.2mg/dL (0.2 mg/dL) Urine Leukocyte Esterase Negative (NEG) Urine RBC >40/HPF (0-2) Urine WBC 1-4/HPF (0-4) Urine Squamous Epithelial Cells Few/LPF Urine Bacteria Few/HPF (0-FEW) Urine Hyaline Casts Many/HPF Urine Mucus Marked/LPF Sodium Level 138mmol/L (136-145) Potassium Level 3.1mmol/L (3.5-5.1) Chloride Level 103mmol/L (98-107) Carbon Dioxide Level 25mmol/L (21-32) Anion Gap 10 (6-14) Blood Urea Nitrogen 16mg/dL (8-26) Creatinine 0.8mg/dL (0.7-1.3) Estimated GFR (Cockcroft-Gault) 96.1 Glucose Level 104mg/dL (70-99) Calcium Level 7.8mg/dL (8.5-10.1) Magnesium Level 1.9mg/dL (1.8-2.4) Physical Exam HEENT: Neck Supple W Full Motion Chest: Symmetric LUNGS: Other (basilar crackles) Heart: S1S2, other (sinus tach 90-110) Abdomen: Soft N/T Extremities: 2+ Dorsalis Pedis, No Edema Neurology: alert, oriented, follow commands Assessment Assessment 1. STEMI; s/p PCI/PAUL to RCA 2. Transient bradycardia; resolved. BP controlled 3. Sinus tachycardia: mean 90-110, recent diarrhea contributing 4. Hypokalemia 5. Acute systolic heart failure with ICM; LVEF 40-45%, compensated 6. Diarrhea: improved with Imodium. No fever. per PCP Recommendations 1. OK to DC per cardiac standpoint 2. Cardiac rehab if able after reevaluation in office next week. 3. Continue with secondary prevention. DC instructions including medications have been reinforced to pt and daughter to promote compliance 4. Post cath instructions 5. DAPT with ASA/brilinta 6. Replace K. Will reevaluate for diuretic therapy/BB dosing on next week appt once diarrhea is completely resolved. DO EDWARDS MD 07/05/16 1112: CARDIO Progress Notes Plan Plan Pt. seen and examined. 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 No acute events. Diarrhea better Normal heart tones. Continue current meds. F/u in the office in 1-2 weeks. KEIRY SWAIN APRN Jul 05, 2016 08:43 DO EDWARDS MD Jul 05, 2016 11:12
[2016-07-05] MEDS: POTASSIUM CHLORIDE 20 MEQ TABLET.ER. PO SCH ×2 (08:48→12:00)
[2016-07-05] MEDS: ASPIRIN ENTERIC COATED 81 MG TABLET.DR. PO SCH (08:48)
[2016-07-05] MEDS: TICAGRELOR 90 MG TABLET. PO SCH (08:48)
[2016-07-05] MEDS ORDERED: LISINOPRIL 5 MG TABLET. PO SCH (09:00)
[2016-07-05] MEDS ORDERED: METOPROLOL TART IMMED RELEASE 25 MG TABLET PO SCH (09:00)
[2016-07-05] MEDS ORDERED: LISINOPRIL 2.5 MG TABLET PO SCH (09:00)
[2016-07-05] MEDS ORDERED: METOPROLOL SUCC 24HR ER 25 MG TAB.ER.24H. PO SCH (09:00)
[2016-07-05 10:35] VITALS: BP 106/58
--- NOTE | 2016-07-05 11:33 | PDOC ---
Provider Note Provider Note dc summ addnedum: Pt did not dc 2 days ago bec of diarrhea and hypotension needing to retsart some IVF C diff is neg Diarrhea better BP better Cleared from cards to dc - ff up in 1-2 weeks DISCHARGE SUMMARY Site Code: PMC Name: LLOYD CORBETT Acct: [id number] MR: [id number] : 1945 Visit Date: 06/29/16 [facility] [address] [place], [place] [id number] DISCHARGE SUMMARY PATIENT: LLOYD CORBETT ACCOUNT: [id number] : 1945 LOC: [address] [place] [address] AGE: 70 SEX: M STATUS: ADM IN LOCATION: [address] [place] [address] Discharge Summary Visit Information Date of Admission: Jun 29, 2016 Date of Discharge: Jul 05, 2016 Admitting Diagnosis Comment: 1. Inferior STEMI. Proximal RCA occlusion, s/p stenting with implantation of Xience 3.0/23 PAUL. LVEF 45% with inferior wall HK. 2. Transient bradycardia due to inferior STEMI. 3. ANDIE, possible Contrast induced nephropathy\ 4. Urinary retention Final Diagnosis Problems Medical Problems: (1) CAD (coronary artery disease) Status: Acute (2) STEMI (ST elevation myocardial infarction) Status: Acute Brief Hospital Course Allergies Allergies Coded Allergies Type Severity Reaction Last Updated Verified No Known Drug Allergies 06/29/16 No Vital Signs Vital Signs Date Time Temp Pulse Resp B/P Pulse Ox O2 Delivery O2 Flow Rate FiO2 07/03/16 08:31 117 110/65 07/03/16 08:20 Room Air 07/03/16 07:00 98.1 18 95 98.1 07/02/16 23:40 2.0 Lab Results Laboratory Tests Test 07/01/16 12:20 07/01/16 16:57 07/01/16 20:55 07/02/16 11:55 Glucose (Fingerstick) 124mg/dL (70-99) 128mg/dL (70-99) 114mg/dL (70-99) White Blood Count 10.6x10^3/uL (4.0-11.0) Red Blood Count 4.24x10^6/uL (4.30-5.70) Hemoglobin 12.8g/dL (13.0-17.5) Hematocrit 38.5% (39.0-53.0) Mean Corpuscular Volume 91fL (79-100) Mean Corpuscular Hemoglobin 30pg (25-35) Mean Corpuscular Hemoglobin Concent 33g/dL (31-37) Red Cell Distribution Width 13.9% (11.5-14.5) Platelet Count 238x10^3/uL (140-400) Neutrophils (%) (Auto) 85% (31-73) Lymphocytes (%) (Auto) 5% (24-48) Monocytes (%) (Auto) 9% (0-9) Eosinophils (%) (Auto) 0% (0-3) Basophils (%) (Auto) 0% (0-3) Neutrophils # (Auto) 9.1x10^3uL (1.8-7.7) Lymphocytes # (Auto) 0.6x10^3/uL (1.0-4.8) Monocytes # (Auto) 0.9x10^3/uL (0.0-1.1) Eosinophils # (Auto) 0.0x10^3/uL (0.0-0.7) Basophils # (Auto) 0.0x10^3/uL (0.0-0.2) Sodium Level 137mmol/L (136-145) Potassium Level 3.7mmol/L (3.5-5.1) Chloride Level 100mmol/L (98-107) Carbon Dioxide Level 27mmol/L (21-32) Anion Gap 10 (6-14) Blood Urea Nitrogen 24mg/dL (8-26) Creatinine 1.0mg/dL (0.7-1.3) Estimated GFR (Cockcroft-Gault) 74.3 BUN/Creatinine Ratio 24 (6-20) Glucose Level 118mg/dL (70-99) Calcium Level 9.3mg/dL (8.5-10.1) Total Bilirubin 1.0mg/dL (0.2-1.0) Aspartate Amino Transf (AST/SGOT) 116U/L (15-37) Alanine Aminotransferase (ALT/SGPT) 79U/L (16-63) Alkaline Phosphatase 92U/L (46-116) Total Protein 7.2g/dL (6.4-8.2) Albumin 2.7g/dL (3.4-5.0) Albumin/Globulin Ratio 0.6 (1.0-1.7) Test 07/03/16 03:15 White Blood Count 10.1x10^3/uL (4.0-11.0) Red Blood Count 3.91x10^6/uL (4.30-5.70) Hemoglobin 11.9g/dL (13.0-17.5) Hematocrit 34.5% (39.0-53.0) Mean Corpuscular Volume 88fL (79-100) Mean Corpuscular Hemoglobin 30pg (25-35) Mean Corpuscular Hemoglobin Concent 34g/dL (31-37) Red Cell Distribution Width 13.4% (11.5-14.5) Platelet Count 262x10^3/uL (140-400) Neutrophils (%) (Auto) 79% (31-73) Lymphocytes (%) (Auto) 9% (24-48) Monocytes (%) (Auto) 11% (0-9) Eosinophils (%) (Auto) 0% (0-3) Basophils (%) (Auto) 0% (0-3) Neutrophils # (Auto) 7.9x10^3uL (1.8-7.7) Lymphocytes # (Auto) 0.9x10^3/uL (1.0-4.8) Monocytes # (Auto) 1.1x10^3/uL (0.0-1.1) Eosinophils # (Auto) 0.0x10^3/uL (0.0-0.7) Basophils # (Auto) 0.0x10^3/uL (0.0-0.2) Sodium Level 139mmol/L (136-145) Potassium Level 3.7mmol/L (3.5-5.1) Chloride Level 102mmol/L (98-107) Carbon Dioxide Level 27mmol/L (21-32) Anion Gap 10 (6-14) Blood Urea Nitrogen 21mg/dL (8-26) Creatinine 0.9mg/dL (0.7-1.3) Estimated GFR (Cockcroft-Gault) 83.9 Glucose Level 115mg/dL (70-99) Calcium Level 8.8mg/dL (8.5-10.1) Laboratory Tests Test 07/02/16 11:55 07/03/16 03:15 White Blood Count 10.6x10^3/uL (4.0-11.0) 10.1x10^3/uL (4.0-11.0) Red Blood Count 4.24x10^6/uL (4.30-5.70) 3.91x10^6/uL (4.30-5.70) Hemoglobin 12.8g/dL (13.0-17.5) 11.9g/dL (13.0-17.5) Hematocrit 38.5% (39.0-53.0) 34.5% (39.0-53.0) Mean Corpuscular Volume 91fL (79-100) 88fL (79-100) Mean Corpuscular Hemoglobin 30pg (25-35) 30pg (25-35) Mean Corpuscular Hemoglobin Concent 33g/dL (31-37) 34g/dL (31-37) Red Cell Distribution Width 13.9% (11.5-14.5) 13.4% (11.5-14.5) Platelet Count 238x10^3/uL (140-400) 262x10^3/uL (140-400) Neutrophils (%) (Auto) 85% (31-73) 79% (31-73) Lymphocytes (%) (Auto) 5% (24-48) 9% (24-48) Monocytes (%) (Auto) 9% (0-9) 11% (0-9) Eosinophils (%) (Auto) 0% (0-3) 0% (0-3) Basophils (%) (Auto) 0% (0-3) 0% (0-3) Neutrophils # (Auto) 9.1x10^3uL (1.8-7.7) 7.9x10^3uL (1.8-7.7) Lymphocytes # (Auto) 0.6x10^3/uL (1.0-4.8) 0.9x10^3/uL (1.0-4.8) Monocytes # (Auto) 0.9x10^3/uL (0.0-1.1) 1.1x10^3/uL (0.0-1.1) Eosinophils # (Auto) 0.0x10^3/uL (0.0-0.7) 0.0x10^3/uL (0.0-0.7) Basophils # (Auto) 0.0x10^3/uL (0.0-0.2) 0.0x10^3/uL (0.0-0.2) Sodium Level 137mmol/L (136-145) 139mmol/L (136-145) Potassium Level 3.7mmol/L (3.5-5.1) 3.7mmol/L (3.5-5.1) Chloride Level 100mmol/L (98-107) 102mmol/L (98-107) Carbon Dioxide Level 27mmol/L (21-32) 27mmol/L (21-32) Anion Gap 10 (6-14) 10 (6-14) Blood Urea Nitrogen 24mg/dL (8-26) 21mg/dL (8-26) Creatinine 1.0mg/dL (0.7-1.3) 0.9mg/dL (0.7-1.3) Estimated GFR (Cockcroft-Gault) 74.3 83.9 BUN/Creatinine Ratio 24 (6-20) Glucose Level 118mg/dL (70-99) 115mg/dL (70-99) Calcium Level 9.3mg/dL (8.5-10.1) 8.8mg/dL (8.5-10.1) Total Bilirubin 1.0mg/dL (0.2-1.0) Aspartate Amino Transf (AST/SGOT) 116U/L (15-37) Alanine Aminotransferase (ALT/SGPT) 79U/L (16-63) Alkaline Phosphatase 92U/L (46-116) Total Protein 7.2g/dL (6.4-8.2) Albumin 2.7g/dL (3.4-5.0) Albumin/Globulin Ratio 0.6 (1.0-1.7) Brief Hospital Course Mr. Corbett is a 70 old male admitted for CP, found to have inferior NSTEMI, got stented. NEw meds started including lisinopril 5, lasix 40, Brilinta 9o BID and ASA 81. Pt unfortunetaly is no read./no write, will try to arrange for HH,. Pt seen and examined DW RN and family at bedside COnsults: cards Proc; [facility] Discharge Information Condition at Discharge: Improved, Stable Disposition/Orders: D/C to Home w/ HH Miscellaneous Medications Info (No Known Medications Prior To Admisstion) 1 EACH MC (Reported) WESLEY KLEIN MD Jul 03, 2016 11:10 DICTATED BY: WESLEY KLEIN MD 07/03/16 1110 SIGNED BY: WESLEY KLEIN MD 07/05/16 1110 cc: JAK GOMEZ MD; WESLEY KLEIN MD; UNKNOWN PCP NAME ~ WESLEY KLEIN MD Jul 05, 2016 11:33
[2016-07-05] MEDS ORDERED: METO25TA4 PO (13:49)
[2016-07-05] MEDS ORDERED: TAMS0.4C97 PO (13:55)
[2016-07-05] MEDS ORDERED: POTA10CA PO (13:56)
== END 2016-07-05 14:25 | disposition home health service (06) | DRG 246 ==
LOC: ER 11:24 → 1 WEST ICU 12:16 → ER 12:24 → 2 NORTH 07-01 15:19
PROVIDERS: ADMIT Internal Medicine Hematology & Oncology; ATTEND Internal Medicine Hematology & Oncology
PROC: 027034Z Dilation of Coronary Artery, One Artery with Drug-eluting Intraluminal Device, Percutaneous Approach (ICD-10-PCS; principal; 2016-06-29)
PROC: 02703ZZ Dilation of Coronary Artery, One Artery, Percutaneous Approach (ICD-10-PCS; 2016-06-29)
PROC: 4A023N7 Measurement of Cardiac Sampling and Pressure, Left Heart, Percutaneous Approach (ICD-10-PCS; 2016-06-29)
PROC: B2111ZZ Fluoroscopy of Multiple Coronary Arteries using Low Osmolar Contrast (ICD-10-PCS; 2016-06-29)
PROC: B2151ZZ Fluoroscopy of Left Heart using Low Osmolar Contrast (ICD-10-PCS; 2016-06-29)
DX: I21.19 ST elevation (STEMI) myocardial infarction involving other coronary artery of inferior wall (principal); I50.21 Acute systolic (congestive) heart failure; E87.1 Hypo-osmolality and hyponatremia; N17.9 Acute kidney failure, unspecified; E11.9 Type 2 diabetes mellitus without complications; E87.6 Hypokalemia; I25.10 Atherosclerotic heart disease of native coronary artery without angina pectoris; N40.1 Benign prostatic hyperplasia with lower urinary tract symptoms; R33.8 Other retention of urine; Z87.891 Personal history of nicotine dependence
CPT/HCPCS: 36415; 71010; 80047; 80048; 80053; 80061; 80076; 81001; 82553; 82947; 83036; 83735; 83880; 84484; 85007; 85027; 85610; 87045; 87324; 87641; 92941; 93005; 93306; 93308; 93458; 94660; 96374; 96375; A4314; C1725; C1769; C1874; C1887; C1892; C9460; G0103; J0461; J1265; J1815; J1940; J2250; J2270; J2370; J2405; J3010; J3490; J7030; J7050; 99291-25; J3246

== ENCOUNTER → 2016-12-08 | Outpatient (CLI) | payer OTHER ==
[~2016-12-08] MED LIST: ASPI-630 PO; FURO-68 PO; LISI-338 PO; METO25TA4 PO; NITR0.4T22 SL; POTASSIUM CHLO10 MEQ PO; TAMS0.4C97 PO; TICA90TA PO
--- NOTE | 2016-12-08 10:41 | CARD ---
APPROVED REPORT EXAM: Two-dimensional and M-mode echocardiogram with Doppler and color Doppler. Other Information Quality : Good INDICATION Cardiac Disease: CAD STEMI 2D DIMENSIONS RVDd2.7 (2.9-3.5cm)Left Atrium(2D)2.5 (1.6-4.0cm) IVSd0.7 (0.7-1.1cm)Aortic Root(2D)2.6 (2.0-3.7cm) LVDd4.6 (3.9-5.9cm)LVOT Diameter2.0 (1.8-2.4cm) PWd0.7 (0.7-1.1cm)LVDs3.9 (2.5-4.0cm) FS (%) 17.5 %SV27.8 ml LVEF(%)35.0 (>50%) Aortic Valve AoV Peak Moris.117.3cm/sAoV VTI22.8cm AO Peak GR.5.5mmHgLVOT Peak Moris.75.3cm/s LVOT VTI 16.36cmAO Mean GR.3mmHg TIFFANIE (VMAX)1.34lz4AUS (VTI)2.23cm2 Mitral Valve MV E Ircnlvlz54.4cm/sMV DECEL LMWK408go MV A Szxyvjlf41.1cm/sMV YAD23uv E/A Ratio2.3MVA (PHT)4.58cm2 TDI E/Lateral E'14.1E/Medial E'14.1 Tricuspid Valve TR P. Ghkdtmah106za/sRAP FWTIBDED7miZt TR Peak Gr.99jzPoZHQF45yaCs Pulmonary Vein S1 Ixmndzeq91.1cm/sD2 Aiisoxbo48.6cm/s PVa [id number] LEFT VENTRICLE The left ventricle is normal size. There is normal left ventricular wall thickness. Left ventricle sy stolic function is moderately impaired. The Ejection Fraction is 35-40%. There is global hypokinesis of the left ventricle with predominance in the basal to mid inferior and inferoseptal segments Transm itral Doppler flow pattern is restrictive diastolic dysfunction. RIGHT VENTRICLE The right ventricle is normal size. The right ventricular systolic function is normal. ATRIA The left atrium size is normal. The right atrium size is normal. The interatrial septum is intact wit h no evidence for an atrial septal defect or patent foramen ovale as noted on 2-D or Doppler imaging. AORTIC VALVE The aortic valve is calcified but opens well. Doppler and Color Flow revealed no significant aortic r egurgitation. There is no significant aortic valvular stenosis. MITRAL VALVE The mitral valve is calcified but opens well. There is no evidence of mitral valve prolapse. There is no mitral valve stenosis. Doppler and Color-flow revealed mild to moderate mitral regurgitation. TRICUSPID VALVE The tricuspid valve is normal in structure and function. Doppler and Color Flow revealed mild tricusp id regurgitation. The PA pressure was estimated at 30 mmHg. There is no tricuspid valve stenosis. PULMONIC VALVE Doppler and Color Flow revealed trace pulmonic valvular regurgitation. There is no pulmonic valvular stenosis. GREAT VESSELS The aortic root is normal in size. The ascending aorta is normal in size. The IVC is normal in size a nd collapses >50% with inspiration. PERICARDIAL EFFUSION There is no evidence of significant pericardial effusion. Critical Notification Critical Value: No <Conclusion> Left ventricle systolic function is moderately impaired. The Ejection Fraction is 35-40%. There is global hypokinesis of the left ventricle with predominance in the basal to mid inferior and inferoseptal segments Doppler and Color-flow revealed mild to moderate mitral regurgitation.
== END | disposition home or self-care (01) ==
LOC: ECHO 09:45
PROVIDERS: ATTEND Internal Medicine Cardiovascular Disease
DX: I08.1 Rheumatic disorders of both mitral and tricuspid valves (principal); I25.10 Atherosclerotic heart disease of native coronary artery without angina pectoris; I21.3 ST elevation (STEMI) myocardial infarction of unspecified site
CPT/HCPCS: 93306

== ENCOUNTER → 2017-04-17 | Outpatient (CLI) | payer OTHER, MEDICARE | END | disposition home or self-care (01) | LOC: NM 10:24 | DX: I25.5 Ischemic cardiomyopathy (principal) | CPT/HCPCS: 78472; 96374; A9560 ==

== ENCOUNTER → 2017-07-15 | Outpatient (CLI) | payer OTHER ==
[2017-07-15 09:40] LABS: ADD MAN DIFF? NO
[2017-07-15 09:57] LABS: BASO # 0.1 x10^3/uL (0.0-0.2); BASO % 1 % (0-3); EOS # 0.1 x10^3/uL (0.0-0.7); EOS % 1 % (0-3); HEMATOCRIT 40.4 % (39.0-53.0); HEMOGLOBIN 13.5 g/dL (13.0-17.5); LYMPH # 2.2 x10^3/uL (1.0-4.8); LYMPH % 32 % (24-48); MEAN CORPUSCULAR HEMOGLOBIN 30 pg (25-35); MEAN CORPUSCULAR HGB CONC 33 g/dL (31-37); MEAN CORPUSCULAR VOLUME 91 fL (79-100); MONO # 0.6 x10^3/uL (0.0-1.1); MONO % 8 % (0-9); NEUT # 4.1 x10^3uL (1.8-7.7); NEUT % 58 % (31-73); PLATELET COUNT 204 x10^3/uL (140-400); RED BLOOD COUNT 4.44 x10^6/uL (4.30-5.70); RED CELL DISTRIBUTION WIDTH 13.2 % (11.5-14.5)
[2017-07-15 10:10] LABS: ALBUMIN 4.2 g/dL (3.4-5.0); ALBUMIN/GLOBULIN RATIO 0.9 (1.0-1.7); ALK PHOS 96 U/L (46-116); ALT (SGPT) 29 U/L (16-63); ANION GAP 9 (6-14); AST (SGOT) 17 U/L (15-37); BLOOD UREA NITROGEN 20 mg/dL (8-26); BUN/CREATININE RATIO 14 (6-20); CALCIUM 10.2 mg/dL (8.5-10.1); CARBON DIOXIDE 30 mmol/L (21-32); CHLORIDE 102 mmol/L (98-107); CREATININE 1.4 mg/dL (0.7-1.3); GFR 50.2; GLUCOSE 113 mg/dL (70-99); POTASSIUM 4.6 mmol/L (3.5-5.1); SODIUM 141 mmol/L (136-145); TOTAL BILIRUBIN 0.6 mg/dL (0.2-1.0); TOTAL PROTEIN 8.8 g/dL (6.4-8.2)
== END | disposition home or self-care (01) ==
LOC: LAB 09:30
DX: I25.5 Ischemic cardiomyopathy (principal); E11.9 Type 2 diabetes mellitus without complications
CPT/HCPCS: 36415; 80053; 85025

== ENCOUNTER → 2018-06-23 | Outpatient (CLI) | payer OTHER ==
[~2018-06-23] MED LIST changes: +POTA10TA12 PO; -POTASSIUM CHLO10 MEQ PO
[2018-06-23 11:11] LABS: BASO # 0.1 x10^3/uL (0.0-0.2); BASO % 1 % (0-3); EOS # 0.1 x10^3/uL (0.0-0.7); EOS % 1 % (0-3); HEMATOCRIT 39.1 % (39.0-53.0); LYMPH % 27 % (24-48); MEAN CORPUSCULAR HEMOGLOBIN 30 pg (25-35); MEAN CORPUSCULAR HGB CONC 33 g/dL (31-37); MEAN CORPUSCULAR VOLUME 90 fL (79-100); MONO # 0.7 x10^3/uL (0.0-1.1); MONO % 9 % (0-9); NEUT # 4.5 x10^3uL (1.8-7.7); NEUT % 62 % (31-73); PLATELET COUNT 231 x10^3/uL (140-400); RED BLOOD COUNT 4.34 x10^6/uL (4.30-5.70); RED CELL DISTRIBUTION WIDTH 13.3 % (11.5-14.5); WHITE BLOOD COUNT 7.3 x10^3/uL (4.0-11.0)
[2018-06-23 11:31] LABS: ALBUMIN 4.2 g/dL (3.4-5.0); CALCIUM 9.5 mg/dL (8.5-10.1); CREATININE 1.5 mg/dL (0.7-1.3); GFR 46.3; POTASSIUM 4.5 mmol/L (3.5-5.1); TOTAL BILIRUBIN 0.5 mg/dL (0.2-1.0); TOTAL PROTEIN 8.4 g/dL (6.4-8.2)
== END | disposition home or self-care (01) ==
LOC: LAB 10:48
PROVIDERS: ATTEND Internal Medicine Cardiovascular Disease
DX: I25.5 Ischemic cardiomyopathy (principal)
CPT/HCPCS: 36415; 80053; 80061; 83721; 85025

== ENCOUNTER → 2018-09-14 | Outpatient (CLI) | payer OTHER ==
[2018-09-14 11:11] LABS: BILIRUBIN,URINE NEGATIVE (NEG); CLARITY,URINE CLEAR; COLOR,URINE YELLOW; NITRITE,URINE NEGATIVE (NEG); PROTEIN,URINE NEGATIVE (NEG-TRACE); UROBILINOGEN,URINE 0.2 mg/dL (0.2 mg/dL)
[2018-09-14 11:26] LABS: SQUAMOUS EPITHELIAL CELL,UR OCC /LPF
[2018-09-14 11:27] LABS: BACTERIA,URINE 0 /HPF (0-FEW); HYALINE CASTS, URINE OCCASIONAL /HPF; RBC,URINE OCC /HPF (0-2); WBC,URINE OCC /HPF (0-4)
[2018-09-14 11:43] LABS: CALCIUM 9.7 mg/dL (8.5-10.1); CREATININE 1.4 mg/dL (0.7-1.3); GFR 50.1; POTASSIUM 4.1 mmol/L (3.5-5.1)
== END | disposition home or self-care (01) ==
LOC: LAB 10:46
PROVIDERS: ATTEND Family Medicine
DX: I25.10 Atherosclerotic heart disease of native coronary artery without angina pectoris (principal); R35.0 Frequency of micturition; Z80.42 Family history of malignant neoplasm of prostate
CPT/HCPCS: 36415; 80048; 81001; 84153; G0103

== ENCOUNTER → 2019-03-24 | Outpatient (CLI) | payer OTHER ==
[2019-03-24 10:40] LABS: BASO # 0.1 x10^3/uL (0.0-0.2); BASO % 1 % (0-3); EOS # 0.1 x10^3/uL (0.0-0.7); EOS % 2 % (0-3); HEMATOCRIT 37.7 % (39.0-53.0); HEMOGLOBIN 12.7 g/dL (13.0-17.5); LYMPH # 1.9 x10^3/uL (1.0-4.8); LYMPH % 29 % (24-48); MEAN CORPUSCULAR HEMOGLOBIN 30 pg (25-35); MEAN CORPUSCULAR HGB CONC 34 g/dL (31-37); MEAN CORPUSCULAR VOLUME 89 fL (79-100); MONO # 0.6 x10^3/uL (0.0-1.1); MONO % 9 % (0-9); NEUT % 59 % (31-73); PLATELET COUNT 229 x10^3/uL (140-400); RED BLOOD COUNT 4.21 x10^6/uL (4.30-5.70); RED CELL DISTRIBUTION WIDTH 13.5 % (11.5-14.5); WHITE BLOOD COUNT 6.7 x10^3/uL (4.0-11.0)
[2019-03-24 11:00] LABS: ALBUMIN 4.1 g/dL (3.4-5.0); CREATININE 1.5 mg/dL (0.7-1.3); GFR 46.1; POTASSIUM 3.9 mmol/L (3.5-5.1); TOTAL BILIRUBIN 0.5 mg/dL (0.2-1.0); TOTAL PROTEIN 8.4 g/dL (6.4-8.2)
== END | disposition home or self-care (01) ==
LOC: LAB 10:17
PROVIDERS: ATTEND Family Medicine
DX: Z12.5 Encounter for screening for malignant neoplasm of prostate (principal); I10 Essential (primary) hypertension; E78.00 Pure hypercholesterolemia, unspecified
CPT/HCPCS: 36415; 80053; 80061; 84153; 85025; G0103

== ENCOUNTER → 2019-08-26 | Outpatient (CLI) | payer OTHER ==
--- NOTE | 2019-08-26 11:33 | CARD ---
MR#: [id number] Date of Study: 08/26/2019 Ordering Physician: DO EDWARDS, Referring Physician: DO EDWARDS, Tech: Ann Taylor [facility] APPROVED REPORT EXAM: Two-dimensional and M-mode echocardiogram with Doppler and color Doppler. Other Information Quality : Good INDICATION Cardiac Disease: CAD 2D DIMENSIONS RVDd2.3 (2.9-3.5cm)Left Atrium(2D)2.7 (1.6-4.0cm) IVSd0.6 (0.7-1.1cm)Aortic Root(2D)2.7 (2.0-3.7cm) LVDd4.9 (3.9-5.9cm)LVOT Diameter2.0 (1.8-2.4cm) PWd0.4 (0.7-1.1cm)LVDs3.8 (2.5-4.0cm) FS (%) 21.0 %SV47.0 ml LVEF(%)42.6 (>50%) Aortic Valve AoV Peak Moris.136.0cm/sAoV VTI27.1cm AO Peak GR.7.4mmHgLVOT Peak Moris.91.5cm/s AO Mean GR.4mmHgAVA (VMAX)2.03cm2 TIFFANIE (VTI)2.10cm2 Mitral Valve MV E Bxwyyyur12.1cm/sMV DECEL BAVH042vk MV A Xmwuuzuv79.5cm/sE/A Ratio0.9 Tricuspid Valve TR P. Iyxsqukb925ds/sRAP JRUSHIFW7gcQi TR Peak Gr.30jcSqHUVW59bvVx Pulmonary Vein S1 Azgebxar23.7cm/sD2 Ugkbvdfn11.9cm/s LEFT VENTRICLE The left ventricle is normal size. There is normal left ventricular wall thickness. Left ventricle sy stolic function is mildly impaired. Base to mid inferior wall appears akinetic. The Ejection Fraction is 40%. Transmitral Doppler flow pattern is Grade I-abnormal relaxation pattern. RIGHT VENTRICLE The right ventricle is normal size. The right ventricular systolic function is normal. ATRIA The left atrium size is normal. The right atrium size is normal. The interatrial septum is intact wit h no evidence for an atrial septal defect or patent foramen ovale as noted on 2-D or Doppler imaging. AORTIC VALVE The aortic valve is calcified but opens well. Doppler and Color Flow revealed no significant aortic r egurgitation. There is no significant aortic valvular stenosis. MITRAL VALVE The mitral valve is calcified but opens well. There is no evidence of mitral valve prolapse. There is no mitral valve stenosis. Doppler and Color-flow revealed mild mitral regurgitation. TRICUSPID VALVE The tricuspid valve is normal in structure and function. Doppler and Color Flow revealed trace tricus pid regurgitation. The PA pressure was estimated at 26 mmHg. There is no tricuspid valve stenosis. PULMONIC VALVE The pulmonary valve is normal in structure and function. Doppler and Color Flow revealed trace pulmon ic valvular regurgitation. There is no pulmonic valvular stenosis. GREAT VESSELS The aortic root is normal in size. The ascending aorta is normal in size. The IVC is normal in size a nd collapses >50% with inspiration. PERICARDIAL EFFUSION There is no evidence of significant pericardial effusion. Critical Notification Critical Value: No <Conclusion> Left ventricle systolic function is mildly impaired. Base to mid inferior wall appears akinetic. The Ejection Fraction is 40%. Transmitral Doppler flow pattern is Grade I-abnormal relaxation pattern. Mild mitral regurgitation. Trace tricuspid regurgitation. The PA pressure was estimated at 26 mmHg. There is no evidence of significant pericardial effusion. Signed by : Jaden Luke, Electronically Approved : 08/26/2019 11:33:18
== END ==
LOC: ECHO 10:43
PROVIDERS: ATTEND Internal Medicine Cardiovascular Disease
DX: I08.0 Rheumatic disorders of both mitral and aortic valves (principal); I25.10 Atherosclerotic heart disease of native coronary artery without angina pectoris
CPT/HCPCS: 93306

== ENCOUNTER → 2019-09-21 | Outpatient (CLI) | payer OTHER ==
[2019-09-21 11:22] LABS: BASO # 0.1 x10^3/uL (0.0-0.2); BASO % 1 % (0-3); EOS # 0.1 x10^3/uL (0.0-0.7); EOS % 2 % (0-3); HEMATOCRIT 35.9 % (39.0-53.0); HEMOGLOBIN 12.4 g/dL (13.0-17.5); LYMPH # 1.6 x10^3/uL (1.0-4.8); LYMPH % 25 % (24-48); MEAN CORPUSCULAR HEMOGLOBIN 31 pg (25-35); MEAN CORPUSCULAR HGB CONC 35 g/dL (31-37); MEAN CORPUSCULAR VOLUME 89 fL (79-100); MONO # 0.6 x10^3/uL (0.0-1.1); MONO % 9 % (0-9); NEUT % 63 % (31-73); PLATELET COUNT 224 x10^3/uL (140-400); RED BLOOD COUNT 4.03 x10^6/uL (4.30-5.70); RED CELL DISTRIBUTION WIDTH 13.6 % (11.5-14.5); WHITE BLOOD COUNT 6.4 x10^3/uL (4.0-11.0)
[2019-09-21 11:46] LABS: CALCIUM 8.9 mg/dL (8.5-10.1); CREATININE 1.5 mg/dL (0.7-1.3); GFR 46.1; POTASSIUM 4.4 mmol/L (3.5-5.1)
== END | disposition home or self-care (01) ==
LOC: LAB 10:58
PROVIDERS: ATTEND Family Medicine
DX: I25.10 Atherosclerotic heart disease of native coronary artery without angina pectoris (principal); I10 Essential (primary) hypertension; E78.00 Pure hypercholesterolemia, unspecified
CPT/HCPCS: 36415; 80048; 80061; 85025

== ENCOUNTER → 2020-03-23 | Outpatient (CLI) | payer OTHER ==
[2020-03-23 11:33] LABS: BASO # 0.1 x10^3/uL (0.0-0.2); BASO % 1 % (0-3); EOS # 0.1 x10^3/uL (0.0-0.7); EOS % 1 % (0-3); HEMATOCRIT 37.6 % (39.0-53.0); HEMOGLOBIN 12.8 g/dL (13.0-17.5); LYMPH # 1.7 x10^3/uL (1.0-4.8); LYMPH % 29 % (24-48); MEAN CORPUSCULAR HEMOGLOBIN 31 pg (25-35); MEAN CORPUSCULAR HGB CONC 34 g/dL (31-37); MEAN CORPUSCULAR VOLUME 90 fL (79-100); MONO # 0.6 x10^3/uL (0.0-1.1); MONO % 10 % (0-9); NEUT # 3.6 x10^3/uL (1.8-7.7); NEUT % 59 % (31-73); PLATELET COUNT 227 x10^3/uL (140-400); RED BLOOD COUNT 4.19 x10^6/uL (4.30-5.70); RED CELL DISTRIBUTION WIDTH 14.1 % (11.5-14.5)
[2020-03-23 11:53] LABS: ALBUMIN 3.9 g/dL (3.4-5.0); CALCIUM 9.5 mg/dL (8.5-10.1); CREATININE 1.4 mg/dL (0.7-1.3); GFR 49.8; POTASSIUM 4.2 mmol/L (3.5-5.1); TOTAL BILIRUBIN 0.4 mg/dL (0.2-1.0); TOTAL PROTEIN 7.8 g/dL (6.4-8.2)
== END ==
LOC: LAB 10:41
PROVIDERS: ATTEND Family Medicine
DX: Z12.5 Encounter for screening for malignant neoplasm of prostate (principal); I10 Essential (primary) hypertension; E78.00 Pure hypercholesterolemia, unspecified
CPT/HCPCS: 36415; 80053; 80061; 85025; G0103

== ENCOUNTER → 2020-08-27 | Outpatient (CLI) | payer OTHER ==
[~2020-08-27] MED LIST changes: -LISI-338 PO; +LISI-517 PO
[2020-08-27 11:40] LABS: BASO # 0.1 x10^3/uL (0.0-0.2); BASO % 1 % (0-3); EOS # 0.1 x10^3/uL (0.0-0.7); EOS % 1 % (0-3); HEMATOCRIT 38.3 % (39.0-53.0); HEMOGLOBIN 12.9 g/dL (13.0-17.5); LYMPH # 2.1 x10^3/uL (1.0-4.8); LYMPH % 30 % (24-48); MEAN CORPUSCULAR HEMOGLOBIN 30 pg (25-35); MEAN CORPUSCULAR HGB CONC 34 g/dL (31-37); MEAN CORPUSCULAR VOLUME 90 fL (79-100); MONO # 0.7 x10^3/uL (0.0-1.1); MONO % 10 % (0-9); NEUT % 58 % (31-73); PLATELET COUNT 192 x10^3/uL (140-400); RED BLOOD COUNT 4.26 x10^6/uL (4.30-5.70); RED CELL DISTRIBUTION WIDTH 13.7 % (11.5-14.5)
[2020-08-27 12:07] LABS: ALBUMIN 4.2 g/dL (3.4-5.0); ALBUMIN/GLOBULIN RATIO 1.3 (1.0-1.7); CREATININE 1.4 mg/dL (0.7-1.3); GFR 49.8; TOTAL BILIRUBIN 0.4 mg/dL (0.2-1.0); TOTAL PROTEIN 7.4 g/dL (6.4-8.2)
[2020-08-27 12:09] LABS: CHOLESTEROL/HDL RATIO 2.2
== END ==
LOC: LAB 11:07
PROVIDERS: ATTEND Family Medicine
DX: D64.9 Anemia, unspecified (principal); I10 Essential (primary) hypertension; E78.00 Pure hypercholesterolemia, unspecified
CPT/HCPCS: 36415; 80053; 80061; 85025

== ENCOUNTER → 2021-02-19 | Outpatient (CLI) | payer OTHER ==
[~2021-02-19] MED LIST changes: -LISI-517 PO; +LISI5TAB15 PO
--- NOTE | 2021-02-20 13:07 | CARD ---
MR#: [id number] Date of Study: 02/19/2021 Ordering Physician: DO EDWARDS, Referring Physician: DO EDWARDS, Tech: Alison Carlos [facility] APPROVED REPORT EXAM: Two-dimensional and M-mode echocardiogram with Doppler and color Doppler. Other Information Quality : Technically LimitedHR: 78bpm Rhythm : NSR INDICATION Cardiac Disease: CAD RISK FACTORS Hypertension Hyperlipidemia 2D DIMENSIONS RVDd2.8 (2.9-3.5cm)Left Atrium(2D)3.2 (1.6-4.0cm) IVSd0.8 (0.7-1.1cm)Aortic Root(2D)3.0 (2.0-3.7cm) LVDd4.5 (3.9-5.9cm)LVOT Diameter1.9 (1.8-2.4cm) PWd0.9 (0.7-1.1cm)LVDs3.4 (2.5-4.0cm) FS (%) 24.2 %SV44.1 ml Aortic Valve AoV Peak Moris.140.3cm/sAoV VTI31.3cm AO Peak GR.7.9mmHgLVOT Peak Moris.96.4cm/s AO Mean GR.4mmHgAVA (VMAX)2.02cm2 Mitral Valve MV E Zpmpkont54.9cm/sMV DECEL [id number] MV A Vkhlghen22.7cm/sE/A Ratio0.7 Pulmonary Valve PV Peak Xxqqtcnr667.7cm/s Tricuspid Valve TR P. Behswkae359hy/sTR Peak Gr.32mmHg LEFT VENTRICLE The left ventricle is normal size. There is normal left ventricular wall thickness. The LV systolic f unction is mildly impaired. Estimated ejection fraction 40-45%. There is mild global hypokinesis of the left ventricle. Transmitral Doppler flow pattern is Grade I-abnormal relaxation pattern. RIGHT VENTRICLE The right ventricle is normal size. There is normal right ventricular wall thickness. The right ventr icular systolic function is normal. ATRIA The left atrium size is normal. The right atrium size is normal. The interatrial septum is intact wit h no evidence for an atrial septal defect or patent foramen ovale as noted on 2-D or Doppler imaging. AORTIC VALVE The aortic valve is normal in structure and function. Doppler and Color Flow revealed no significant aortic regurgitation. There is no significant aortic valvular stenosis. MITRAL VALVE The mitral valve is normal in structure and function. There is no evidence of mitral valve prolapse. There is no mitral valve stenosis. Doppler and Color-flow revealed mild mitral regurgitation. TRICUSPID VALVE The tricuspid valve is normal in structure and function. Doppler and Color Flow revealed trace to mil d tricuspid regurgitation. Estimated PAP 35 mmHg. There is no tricuspid valve stenosis. PULMONIC VALVE The pulmonary valve is normal in structure and function. Doppler and Color Flow revealed no pulmonic valvular regurgitation. GREAT VESSELS The aortic root is normal in size. The ascending aorta is normal in size. The IVC is normal in size a nd collapses >50% with inspiration. PERICARDIAL EFFUSION There is no evidence of significant pericardial effusion. Critical Notification Critical Value: No <Conclusion> The left ventricle is normal size. The LV systolic function is mildly impaired. Estimated ejection fraction 40-45%. There is mild global hypokinesis of the left ventricle. Doppler and Color Flow revealed no significant aortic regurgitation. There is no significant aortic valvular stenosis. Doppler and Color-flow revealed mild mitral regurgitation. Doppler and Color Flow revealed trace to mild tricuspid regurgitation. Estimated PAP 35 mmHg. Signed by : Best Villegas MD Electronically Approved : 02/20/2021 13:06:50
== END ==
LOC: ECHO 10:50
PROVIDERS: ATTEND Internal Medicine Cardiovascular Disease
DX: I08.1 Rheumatic disorders of both mitral and tricuspid valves (principal); I25.5 Ischemic cardiomyopathy; I25.10 Atherosclerotic heart disease of native coronary artery without angina pectoris
CPT/HCPCS: 93306

== ENCOUNTER → 2021-02-19 | Outpatient (CLI) | payer OTHER ==
[2021-02-19 11:58] LABS: BASO # 0.1 x10^3/uL (0.0-0.2); BASO % 1 % (0-3); EOS # 0.1 x10^3/uL (0.0-0.7); EOS % 1 % (0-3); HEMATOCRIT 37.4 % (39.0-53.0); HEMOGLOBIN 12.7 g/dL (13.0-17.5); LYMPH # 1.8 x10^3/uL (1.0-4.8); LYMPH % 26 % (24-48); MEAN CORPUSCULAR HEMOGLOBIN 31 pg (25-35); MEAN CORPUSCULAR HGB CONC 34 g/dL (31-37); MEAN CORPUSCULAR VOLUME 91 fL (79-100); MONO # 0.6 x10^3/uL (0.0-1.1); MONO % 9 % (0-9); NEUT # 4.3 x10^3/uL (1.8-7.7); NEUT % 63 % (31-73); PLATELET COUNT 202 x10^3/uL (140-400); RED BLOOD COUNT 4.14 x10^6/uL (4.30-5.70); RED CELL DISTRIBUTION WIDTH 13.6 % (11.5-14.5); WHITE BLOOD COUNT 6.9 x10^3/uL (4.0-11.0)
[2021-02-19 12:00] LABS: CALCIUM 9.4 mg/dL (8.5-10.1); CREATININE 1.6 mg/dL (0.7-1.3); GFR 42.6; POTASSIUM 4.8 mmol/L (3.5-5.1)
[2021-02-19 12:04] LABS: CHOLESTEROL/HDL RATIO 1.8
== END ==
LOC: LAB 11:01
PROVIDERS: ATTEND Family Medicine
DX: I25.10 Atherosclerotic heart disease of native coronary artery without angina pectoris (principal); D64.9 Anemia, unspecified; E78.00 Pure hypercholesterolemia, unspecified
CPT/HCPCS: 36415; 80048; 80061; 85025

== ENCOUNTER → 2021-08-14 | Outpatient (CLI) | payer OTHER ==
[2021-08-14 12:03] LABS: BASO # 0.1 x10^3/uL (0.0-0.2); BASO % 1 % (0-3); EOS # 0.1 x10^3/uL (0.0-0.7); EOS % 1 % (0-3); HEMATOCRIT 36.5 % (39.0-53.0); HEMOGLOBIN 12.3 g/dL (13.0-17.5); LYMPH # 1.5 x10^3/uL (1.0-4.8); LYMPH % 25 % (24-48); MEAN CORPUSCULAR HEMOGLOBIN 31 pg (25-35); MEAN CORPUSCULAR HGB CONC 34 g/dL (31-37); MEAN CORPUSCULAR VOLUME 90 fL (79-100); MONO # 0.5 x10^3/uL (0.0-1.1); MONO % 9 % (0-9); NEUT # 3.9 x10^3/uL (1.8-7.7); NEUT % 65 % (31-73); PLATELET COUNT 221 x10^3/uL (140-400); RED BLOOD COUNT 4.05 x10^6/uL (4.30-5.70); RED CELL DISTRIBUTION WIDTH 13.9 % (11.5-14.5); WHITE BLOOD COUNT 6.1 x10^3/uL (4.0-11.0)
[2021-08-14 12:34] LABS: ALBUMIN 3.9 g/dL (3.4-5.0); CALCIUM 9.3 mg/dL (8.5-10.1); CREATININE 1.4 mg/dL (0.7-1.3); GFR 49.7; POTASSIUM 4.3 mmol/L (3.5-5.1); TOTAL BILIRUBIN 0.5 mg/dL (0.2-1.0); TOTAL PROTEIN 7.9 g/dL (6.4-8.2)
[2021-08-14 12:35] LABS: CHOLESTEROL/HDL RATIO 1.7
== END ==
LOC: LAB 11:39
PROVIDERS: ATTEND Family Medicine
DX: Z12.5 Encounter for screening for malignant neoplasm of prostate (principal); I10 Essential (primary) hypertension; D64.9 Anemia, unspecified; E78.00 Pure hypercholesterolemia, unspecified
CPT/HCPCS: 36415; 80053; 80061; 85025; G0103